=== PATIENT | male | born 1945 | race Caucasian/White ===

== ENCOUNTER 2016-11-03 06:45 | Inpatient (IN) | payer OTHER, MEDICARE ==
[~2016-11-03] VITALS: Ht 180.3 cm; Wt 104.2 kg
[~2016-11-03 06:45] MED LIST: ALBUTEROL SULF8.5 GM IH; ALBUTEROL17 GM IH; ALTACE10 MG PO; AMARYL2 MG PO; AMLODIPINE BESYL5 MG PO; ANDROGEL5 GM TP; BENEMID500 MG PO; BENICAR HCT 401 EAC1 PO; DIABETA5 MG PO; FLEXERIL10 MG PO; FLOMAX0.4 MG PO; GLUCOPHAGE1000 MG PO; GLUCOPHAGE500 MG PO; IBUPROFEN800 MG PO; JANUVIA100 MG PO; LASIX10 MG PO; LASIX40 MG PO; NORVASC2.5 MG PO; POTASSIUM CHLORIDE; PROBENECID500 MG PO; SPIRIVA1 INHALATI IH; VERAPAMIL
[2016-11-03 07:29] LABS: HEMATOCRIT 37.7 % (38.0-50.0); MCH 27.3 PG (29.0-34.0); MCHC 32.6 G/DL (30.0-36.0); MCV 83.8 FL (86-99); MEAN PLAT.VOLUME 10.7 uM^3 (9.0-12.4); PLATELET COUNT 148 K/uL (156-360); RBC DIS.WIDTH-CV 15.8 % (11.8-14.6); RBC DIS.WIDTH-SD 48.2 % (39-53)
[2016-11-03 07:30] LABS: BASOPHIL COUNT 0.1 K/uL (0-0.1); EOSINOPHIL (%) 0 % (0-5); IMMATURE GRANULOCYTE (%) 0.3 % (0.0-0.7); IMMATURE GRANULOCYTE COUNT 0.3 K/uL; LYMPHOCYTE COUNT 0.6 K/uL (1.0-2.8); MONOCYTE (%) 8.8 % (3-12); MONOCYTE COUNT 0.9 K/uL (0-0.8); NEUTROPHIL (%) 83.9 % (45-76); NEUTROPHIL COUNT 8.2 K/uL (1.8-6.4); WHITE BLOOD COUNT 9.8 K/uL (4.1-10.2)
[2016-11-03 07:39] LABS: INTER. NORMALIZED RATIO 1.1; PROTHROMBIN TIME 10.7 (9.2-11.2); PTT 33.5 (25-32)
[2016-11-03 08:00] LABS: ANION GAP 15 MEQ/L (2-14); CHLORIDE 101 MEQ/L (99-109); POTASSIUM 3.6 MEQ/L (3.7-5.4); SAMPLE HEMOLYSIS CHECK 0; SAMPLE ICTERIC CHECK 0; SAMPLE LIPEMIA CHECK 0; SODIUM 138 MEQ/L (136-147)
[2016-11-03 08:06] LABS: GFR ESTIMATE (CALCULATED) 27 mL/min/; GLUCOSE 166 mg/dL (70-99); UREA NITROGEN (BUN) 54 mg/dL (9-23)
[2016-11-03 08:11] LABS: TROP-I INTERPRETATION NEGATIVE; TROPONIN-I 0.24 ng/mL (0.0-0.30)
[2016-11-03 12:03] LABS: BICARBONATE 22.2 mEq/L (22-26); CARBOXY HGB 0.3 % (0-5); METHEMOGLOBIN 0.6 % (0-1.5); PCO2 35 mm Hg (35-45); PO2 99 mm Hg (80-100); pH 7.41 (7.35-7.45)
[2016-11-03] MEDS ORDERED: NORVASC5 MG PO (12:03)
[2016-11-03 12:04] LABS: COMMENTS - BLOOD GASES +C; DEVICE HFNC; O2 FLOW 8 L/MIN; SITE RR +A; TOTAL RESP RATE 20 resp/min
[2016-11-03] MEDS ORDERED: GLUCOPHAGE500 MG PO (12:04)
[2016-11-03] MEDS ORDERED: BENICAR HCT 401 EAC1 PO (12:06)
[2016-11-03] MEDS ORDERED: GLYBURIDE5 MG PO (12:07)
[2016-11-03] MEDS ORDERED: ASTEPRO 0.15%30 ML BOTH NARES (12:10)
[2016-11-03] MEDS ORDERED: SPIRIVA1 INHALATI IH (12:12)
[2016-11-03] MEDS ORDERED: FLEXERIL10 MG PO (12:17)
[2016-11-03] MEDS ORDERED: NYSTATIN-TRIAMC15 GM TP (12:19)
[2016-11-03] MEDS ORDERED: SANTYL30 GM TP (12:19)
[2016-11-03] MEDS ORDERED: POTASSIUM CHLO10 MEQ PO (12:20)
[2016-11-03] MEDS ORDERED: ULTRAM50 MG PO (12:22)
[2016-11-03] MEDS ORDERED: TYLENOL REGULA325 MG PO (12:23)
[2016-11-03] MEDS ORDERED: METOLAZONE2.5 MG PO (12:24)
[2016-11-03 12:36] LABS: PTT 31.5 (25-32)
[2016-11-03 13:48] LABS: INFLUENZA A VIRAL ANTIGEN NEGATIVE; INFLUENZA B VIRAL ANTIGEN POSITIVE
[2016-11-03 15:15] VITALS: BP 130/56
[2016-11-03 16:00] VITALS: BP 129/113
[2016-11-03 16:48] LABS: METH RESISTANT S AUREUS PCR POSITIVE (NEGATIVE)
[2016-11-03 16:51] LABS: PROBE CHECK PASS
[2016-11-03 18:00] VITALS: BP 124/55
[2016-11-03 19:40] VITALS: BP 163/76
[2016-11-03 20:45] VITALS: BP 150/66
[2016-11-03 22:00] VITALS: BP 140/60
[2016-11-03 23:38] LABS: POINT-OF-CARE METER ID UU14174217
[2016-11-04] VITALS (9 sets, daily range): BP systolic 128–163; BP diastolic 57–87
[2016-11-04 06:50] LABS: ANION GAP 18 MEQ/L (2-14); CHLORIDE 100 MEQ/L (99-109); GFR ESTIMATE (CALCULATED) 26 mL/min/; HDL CHOLESTEROL 41 MG/DL (Desirable>=40); LDL CHOLESTEROL 87 mg/dL (Desirable<100); NON-HDL CHOLESTEROL 115 mg/dL (Desirable<160); POTASSIUM 3.7 MEQ/L (3.7-5.4); SAMPLE HEMOLYSIS CHECK 0; SAMPLE ICTERIC CHECK 0; SAMPLE LIPEMIA CHECK 0; SODIUM 137 MEQ/L (136-147); TOTAL CHOLESTEROL 156 mg/dL (Desirable<200); TRIGLYCERIDES 140 MG/DL (Normal: <150); UREA NITROGEN (BUN) 62 mg/dL (9-23)
[2016-11-04 07:06] LABS: GLUCOSE 285 mg/dL (70-99)
[2016-11-04 10:23] LABS: TROP-I INTERPRETATION NEGATIVE; TROPONIN-I 0.05 ng/mL (0.0-0.30)
[2016-11-04 12:58] LABS: POINT-OF-CARE METER ID UU13113803
[2016-11-04 16:24] LABS: TROP-I INTERPRETATION NEGATIVE; TROPONIN-I 0.14 ng/mL (0.0-0.30)
[2016-11-04 17:31] LABS: POINT-OF-CARE METER ID UU13113803
[2016-11-04 22:13] LABS: TROP-I INTERPRETATION NEGATIVE; TROPONIN-I 0.11 ng/mL (0.0-0.30)
[2016-11-05] VITALS (8 sets, daily range): BP systolic 147–178; BP diastolic 61–86
[2016-11-05 07:33] LABS: MCH 27.5 PG (29.0-34.0); MCHC 32.9 G/DL (30.0-36.0); MCV 83.5 FL (86-99); RBC DIS.WIDTH-CV 15.7 % (11.8-14.6); RBC DIS.WIDTH-SD 47.9 % (39-53); RED BLOOD COUNT 4.07 M/uL (4.00-5.50); WHITE BLOOD COUNT 7.5 K/uL (4.1-10.2)
[2016-11-05 07:50] LABS: MEAN PLAT.VOLUME 10.6 uM^3 (9.0-12.4)
[2016-11-05 07:55] LABS: PLATELET COUNT 199 K/uL (156-360)
[2016-11-05 08:08] LABS: ALKALINE PHOSPHATASE 41 IU/L (3-129); ANION GAP 14 MEQ/L (2-14); CHLORIDE 101 MEQ/L (99-109); GFR ESTIMATE (CALCULATED) 27 mL/min/; GLUCOSE 245 mg/dL (70-99); MAGNESIUM 2.1 mg/dl (1.3-2.7); POTASSIUM 3.7 MEQ/L (3.7-5.4); SAMPLE HEMOLYSIS CHECK 0; SAMPLE ICTERIC CHECK 0; SAMPLE LIPEMIA CHECK 0; SODIUM 136 MEQ/L (136-147); TOTAL BILIRUBIN 0.2 MG/DL (0.0-1.0); UREA NITROGEN (BUN) 66 mg/dL (9-23)
[2016-11-05 10:57] LABS: EOSINOPHIL (%) 0.1 % (0-5); HEMATOLOGY COMMENT 1 REV; IMMATURE GRANULOCYTE (%) 0.3 % (0.0-0.7); LYMPHOCYTE COUNT 0.6 K/uL (1.0-2.8); MONOCYTE (%) 4.7 % (3-12); MONOCYTE COUNT 0.4 K/uL (0-0.8); NEUTROPHIL COUNT 6.5 K/uL (1.8-6.4); USER ID NJR
[2016-11-05 11:11] LABS: POINT-OF-CARE USER ID ENVKC36
[2016-11-06 03:15] VITALS: BP 138/67
[2016-11-06 07:10] LABS: EOSINOPHIL (%) 0 % (0-5); HEMATOCRIT 33.5 % (38.0-50.0); IMMATURE GRANULOCYTE (%) 0.7 % (0.0-0.7); IMMATURE GRANULOCYTE COUNT 0.1 K/uL; LYMPHOCYTE COUNT 0.4 K/uL (1.0-2.8); MCH 27.6 PG (29.0-34.0); MCHC 33.1 G/DL (30.0-36.0); MCV 83.3 FL (86-99); MEAN PLAT.VOLUME 10.5 uM^3 (9.0-12.4); MONOCYTE (%) 5.9 % (3-12); MONOCYTE COUNT 0.6 K/uL (0-0.8); NEUTROPHIL (%) 89.6 % (45-76); NEUTROPHIL COUNT 8.6 K/uL (1.8-6.4); PLATELET COUNT 233 K/uL (156-360); RBC DIS.WIDTH-CV 15.5 % (11.8-14.6); RBC DIS.WIDTH-SD 47.3 % (39-53); RED BLOOD COUNT 4.02 M/uL (4.00-5.50); WHITE BLOOD COUNT 9.6 K/uL (4.1-10.2)
[2016-11-06 07:46] LABS: POINT-OF-CARE METER ID UU14174216
[2016-11-06 07:49] LABS: ANION GAP 13 MEQ/L (2-14); CHLORIDE 100 MEQ/L (99-109); GFR ESTIMATE (CALCULATED) 35 mL/min/; GLUCOSE 285 mg/dL (70-99); POTASSIUM 3.9 MEQ/L (3.7-5.4); SAMPLE HEMOLYSIS CHECK 0; SAMPLE ICTERIC CHECK 0; SAMPLE LIPEMIA CHECK 0; SODIUM 133 MEQ/L (136-147); UREA NITROGEN (BUN) 64 mg/dL (9-23)
[2016-11-06 12:00] VITALS: BP 148/78; BP 167/86
[2016-11-06 16:00] VITALS: BP 152/70
[2016-11-06 19:15] VITALS: BP 152/72
[2016-11-06 21:01] LABS: POINT-OF-CARE METER ID UU14174216
[2016-11-07 00:20] VITALS: BP 156/80
[2016-11-07 04:00] VITALS: BP 151/67
[2016-11-07 06:50] LABS: HEMATOCRIT 34.3 % (38.0-50.0); MCH 27.6 PG (29.0-34.0); MCHC 32.9 G/DL (30.0-36.0); MCV 83.7 FL (86-99); MEAN PLAT.VOLUME 10.3 uM^3 (9.0-12.4); PLATELET COUNT 239 K/uL (156-360); RBC DIS.WIDTH-CV 15.5 % (11.8-14.6); RBC DIS.WIDTH-SD 47.3 % (39-53); WHITE BLOOD COUNT 8.3 K/uL (4.1-10.2)
[2016-11-07 07:09] LABS: ANION GAP 10 MEQ/L (2-14); CHLORIDE 103 MEQ/L (99-109); GFR ESTIMATE (CALCULATED) 37 mL/min/; GLUCOSE 264 mg/dL (70-99); POTASSIUM 4.2 MEQ/L (3.7-5.4); SAMPLE HEMOLYSIS CHECK 0; SAMPLE ICTERIC CHECK 0; SAMPLE LIPEMIA CHECK 0; SODIUM 135 MEQ/L (136-147); UREA NITROGEN (BUN) 56 mg/dL (9-23)
[2016-11-07 08:07] VITALS: BP 136/87; BP 159/76
[2016-11-07 12:30] VITALS: BP 158/74
[2016-11-07 16:23] LABS: POINT-OF-CARE METER ID UU13113781
[2016-11-07 17:25] VITALS: BP 159/75
[2016-11-07 19:20] VITALS: BP 172/79
[2016-11-07 22:09] LABS: POINT-OF-CARE METER ID UU14174216
[2016-11-08] VITALS (7 sets, daily range): BP systolic 150–186; BP diastolic 73–92
[2016-11-08 06:56] LABS: EOSINOPHIL (%) 0 % (0-5); HEMATOCRIT 38.5 % (38.0-50.0); IMMATURE GRANULOCYTE (%) 1.8 % (0.0-0.7); IMMATURE GRANULOCYTE COUNT 0.2 K/uL; LYMPHOCYTE COUNT 0.9 K/uL (1.0-2.8); MCH 26.2 PG (29.0-34.0); MCHC 31.4 G/DL (30.0-36.0); MCV 83.3 FL (86-99); MEAN PLAT.VOLUME 9.9 uM^3 (9.0-12.4); MONOCYTE (%) 5.4 % (3-12); MONOCYTE COUNT 0.4 K/uL (0-0.8); NEUTROPHIL (%) 81.7 % (45-76); NEUTROPHIL COUNT 6.7 K/uL (1.8-6.4); PLATELET COUNT 268 K/uL (156-360); RBC DIS.WIDTH-CV 15.3 % (11.8-14.6); RBC DIS.WIDTH-SD 46.5 % (39-53); RED BLOOD COUNT 4.62 M/uL (4.00-5.50); WHITE BLOOD COUNT 8.2 K/uL (4.1-10.2)
[2016-11-08 07:20] LABS: ANION GAP 8 MEQ/L (2-14); CHLORIDE 105 MEQ/L (99-109); GFR ESTIMATE (CALCULATED) 45 mL/min/; GLUCOSE 208 mg/dL (70-99); POTASSIUM 4.3 MEQ/L (3.7-5.4); SAMPLE HEMOLYSIS CHECK 0; SAMPLE ICTERIC CHECK 0; SAMPLE LIPEMIA CHECK 0; SODIUM 139 MEQ/L (136-147); UREA NITROGEN (BUN) 49 mg/dL (9-23)
[2016-11-08 20:56] LABS: POINT-OF-CARE METER ID UU13113698
[2016-11-09] VITALS (7 sets, daily range): BP systolic 148–187; BP diastolic 59–90
[2016-11-09 07:08] LABS: EOSINOPHIL (%) 0 % (0-5); HEMATOCRIT 37.2 % (38.0-50.0); IMMATURE GRANULOCYTE COUNT 0.2 K/uL; LYMPHOCYTE COUNT 0.6 K/uL (1.0-2.8); MCH 28.1 PG (29.0-34.0); MCHC 33.3 G/DL (30.0-36.0); MCV 84.2 FL (86-99); MEAN PLAT.VOLUME 10.2 uM^3 (9.0-12.4); MONOCYTE (%) 9.2 % (3-12); MONOCYTE COUNT 0.9 K/uL (0-0.8); NEUTROPHIL (%) 83.1 % (45-76); NEUTROPHIL COUNT 8.2 K/uL (1.8-6.4); PLATELET COUNT 259 K/uL (156-360); RBC DIS.WIDTH-CV 15.4 % (11.8-14.6); RBC DIS.WIDTH-SD 47.5 % (39-53); RED BLOOD COUNT 4.42 M/uL (4.00-5.50); WHITE BLOOD COUNT 9.8 K/uL (4.1-10.2)
[2016-11-09 07:31] LABS: ANION GAP 7 MEQ/L (2-14); CHLORIDE 106 MEQ/L (99-109); GFR ESTIMATE (CALCULATED) 45 mL/min/; GLUCOSE 152 mg/dL (70-99); POTASSIUM 4.3 MEQ/L (3.7-5.4); SAMPLE HEMOLYSIS CHECK 0; SAMPLE ICTERIC CHECK 0; SAMPLE LIPEMIA CHECK 0; SODIUM 140 MEQ/L (136-147); UREA NITROGEN (BUN) 47 mg/dL (9-23)
[2016-11-09 07:32] LABS: MAGNESIUM 1.7 mg/dl (1.3-2.7)
[2016-11-09 07:35] LABS: POINT-OF-CARE METER ID UU13113698
[2016-11-09 11:04] LABS: POINT-OF-CARE METER ID UU14174216
[2016-11-09 16:16] LABS: POINT-OF-CARE METER ID UU14174216
[2016-11-10 04:38] VITALS: BP 169/76
[2016-11-10 07:02] LABS: EOSINOPHIL (%) 0 % (0-5); HEMATOCRIT 39.3 % (38.0-50.0); IMMATURE GRANULOCYTE (%) 1.8 % (0.0-0.7); IMMATURE GRANULOCYTE COUNT 0.2 K/uL; MCH 26.3 PG (29.0-34.0); MCV 84.9 FL (86-99); MEAN PLAT.VOLUME 10.2 uM^3 (9.0-12.4); MONOCYTE (%) 5.8 % (3-12); MONOCYTE COUNT 0.7 K/uL (0-0.8); NEUTROPHIL COUNT 9.6 K/uL (1.8-6.4); PLATELET COUNT 279 K/uL (156-360); RBC DIS.WIDTH-CV 15.7 % (11.8-14.6); RBC DIS.WIDTH-SD 47.9 % (39-53); RED BLOOD COUNT 4.63 M/uL (4.00-5.50); WHITE BLOOD COUNT 11.4 K/uL (4.1-10.2)
[2016-11-10 07:26] LABS: ANION GAP 10 MEQ/L (2-14); CHLORIDE 107 MEQ/L (99-109); GFR ESTIMATE (CALCULATED) 45 mL/min/; GLUCOSE 122 mg/dL (70-99); MAGNESIUM 1.6 mg/dl (1.3-2.7); POTASSIUM 4.2 MEQ/L (3.7-5.4); SAMPLE HEMOLYSIS CHECK 0; SAMPLE ICTERIC CHECK 0; SAMPLE LIPEMIA CHECK 0; SODIUM 143 MEQ/L (136-147); UREA NITROGEN (BUN) 44 mg/dL (9-23)
[2016-11-10 07:29] LABS: VANCOMYCIN, TROUGH 16.2 MCG/ML (10-20)
[2016-11-10 08:00] LABS: POINT-OF-CARE USER ID NUTSLF44
[2016-11-10 08:10] VITALS: BP 172/83
[2016-11-10 11:32] LABS: POINT-OF-CARE USER ID NUTSLF44
[2016-11-10 12:38] VITALS: BP 185/88
[2016-11-10 16:09] LABS: POINT-OF-CARE METER ID UU13113698
[2016-11-10 16:28] VITALS: BP 158/76
[2016-11-10 20:24] VITALS: BP 178/84
[2016-11-10 23:07] VITALS: BP 138/90
[2016-11-11] VITALS (7 sets, daily range): BP systolic 130–213; BP diastolic 67–97
[2016-11-11 07:02] LABS: ANION GAP 10 MEQ/L (2-14); CHLORIDE 106 MEQ/L (99-109); GFR ESTIMATE (CALCULATED) 45 mL/min/; GLUCOSE 140 mg/dL (70-99); POTASSIUM 3.7 MEQ/L (3.7-5.4); SAMPLE HEMOLYSIS CHECK 0; SAMPLE ICTERIC CHECK 0; SAMPLE LIPEMIA CHECK 0; SODIUM 141 MEQ/L (136-147); UREA NITROGEN (BUN) 46 mg/dL (9-23)
[2016-11-11 23:34] LABS: POINT-OF-CARE METER ID UU13113781
[2016-11-12 03:54] VITALS: BP 146/74
[2016-11-12 06:48] LABS: HEMATOCRIT 37.4 % (38.0-50.0); MCHC 31.3 G/DL (30.0-36.0); MCV 86.2 FL (86-99); MEAN PLAT.VOLUME 10.4 uM^3 (9.0-12.4); PLATELET COUNT 267 K/uL (156-360); RBC DIS.WIDTH-CV 15.5 % (11.8-14.6); RED BLOOD COUNT 4.34 M/uL (4.00-5.50); WHITE BLOOD COUNT 13.9 K/uL (4.1-10.2)
[2016-11-12 07:12] LABS: ANION GAP 9 MEQ/L (2-14); CHLORIDE 106 MEQ/L (99-109); GFR ESTIMATE (CALCULATED) 45 mL/min/; GLUCOSE 168 mg/dL (70-99); POTASSIUM 4.1 MEQ/L (3.7-5.4); SAMPLE HEMOLYSIS CHECK 0; SAMPLE ICTERIC CHECK 0; SAMPLE LIPEMIA CHECK 0; SODIUM 141 MEQ/L (136-147); UREA NITROGEN (BUN) 43 mg/dL (9-23)
[2016-11-12 08:58] VITALS: BP 215/88
[2016-11-12 10:22] VITALS: BP 135/59
[2016-11-12] MEDS ORDERED: LEVOFLOXACIN500 MG PO (10:40)
[2016-11-12] MEDS ORDERED: DILTIAZEM 24HR180 MG PO (10:40)
[2016-11-12] MEDS ORDERED: CARVEDILOL25 MG PO (10:40)
[2016-11-12] MEDS ORDERED: LINEZOLID600 MG PO (10:40)
[2016-11-12] MEDS ORDERED: ADVAIR HFA120 INHALA IH (10:40)
[2016-11-12] MEDS ORDERED: CALCIUM ACETAT667 MG PO (10:40)
[2016-11-12 12:44] VITALS: BP 138/63
[2016-11-12 17:07] VITALS: BP 194/87
[2016-11-12 20:12] VITALS: BP 188/88
[2016-11-12 20:49] LABS: POINT-OF-CARE METER ID UU13113781
[2016-11-13 00:30] VITALS: BP 169/79
[2016-11-13 04:04] VITALS: BP 163/73
[2016-11-13 07:12] VITALS: BP 182/94
[2016-11-13 07:51] LABS: POINT-OF-CARE USER ID ENVKC36
[2016-11-13] MEDS ORDERED: APRESOLINE25 MG PO (08:13)
[2016-11-13 11:45] VITALS: BP 155/70; BP 157/73
[2016-11-13 11:59] LABS: POINT-OF-CARE METER ID UU13113781; POINT-OF-CARE USER ID ENVKC36
[2016-11-13] MEDS ORDERED: PREDNISONE10 MG PO (14:20)
== END 2016-11-13 15:06 | disposition home health service (06) | DRG 189 ==
LOC: EME → EDBD 06:45 → EDOF 10:52 → 4EAST 10:52 → 4WEST 10:52 → EDOF 11:54 → 4WEST 14:58 → 4EAST 11-04 20:09
PROVIDERS: Emergency Medicine; Family Medicine; Hospitalist; Internal Medicine; Internal Medicine Nephrology; Nurse Practitioner Family; Physician Assistant
DX: J96.01 Acute respiratory failure with hypoxia (principal); J10.08 Influenza due to other identified influenza virus with other specified pneumonia; J15.212 Pneumonia due to Methicillin resistant Staphylococcus aureus; J15.1 Pneumonia due to Pseudomonas; J45.901 Unspecified asthma with (acute) exacerbation; N17.9 Acute kidney failure, unspecified; N04.9 Nephrotic syndrome with unspecified morphologic changes; G82.20 Paraplegia, unspecified; J20.9 Acute bronchitis, unspecified; T50.1X5A Adverse effect of loop [high-ceiling] diuretics, initial encounter; T39.395A Adverse effect of other nonsteroidal anti-inflammatory drugs [NSAID], initial encounter; I10 Essential (primary) hypertension; N18.3 Chronic kidney disease, stage 3 (moderate); I48.91 Unspecified atrial fibrillation; J10.1 Influenza due to other identified influenza virus with other respiratory manifestations; E11.65 Type 2 diabetes mellitus with hyperglycemia; E11.22 Type 2 diabetes mellitus with diabetic chronic kidney disease; I50.9 Heart failure, unspecified; M48.00 Spinal stenosis, site unspecified; G89.4 Chronic pain syndrome; I87.2 Venous insufficiency (chronic) (peripheral); I87.8 Other specified disorders of veins; L22 Diaper dermatitis; R32 Unspecified urinary incontinence; E83.51 Hypocalcemia; E83.39 Other disorders of phosphorus metabolism; E66.01 Morbid (severe) obesity due to excess calories; Z88.1 Allergy status to other antibiotic agents; Z87.891 Personal history of nicotine dependence; Z99.3 Dependence on wheelchair; Z22.322 Carrier or suspected carrier of Methicillin resistant Staphylococcus aureus; Z86.14 Personal history of Methicillin resistant Staphylococcus aureus infection; Z68.36 Body mass index [BMI] 36.0-36.9, adult
CPT/HCPCS: 36600; 71010; 76770; 80048; 80053; 80061; 80069; 80202; 81003; 82565; 82803; 82948; 83735; 83880; 84100; 84484; 84520; 85025; 85027; 85379; 85610; 85730; 87070; 87077; 87147; 87186; 87205; 87502; 87641; 89190; 93005; 93306; 93970; 94010; 94640; 94640 76; 94667; 94668; 94760; 94799; 97530 GO; 97530 GP; 99202; 99281; 99285; J0360; J0696; J1644; J1815; J2270; J2543; J2930; J3370; J3480; J7030; J7050; J7512

== ENCOUNTER 2016-11-30 08:25 | Inpatient (IN) | payer OTHER, MEDICARE ==
[~2016-11-30] VITALS: Ht 180.3 cm; Wt 126.5 kg
[~2016-11-30 08:25] MED LIST changes: +ADVAIR HFA120 INHALA IH; +APRESOLINE25 MG PO; +ASTEPRO 0.15%30 ML BOTH NARES; +CALCIUM ACETAT667 MG PO; +CARVEDILOL25 MG PO; +DILTIAZEM 24HR180 MG PO; +GLYBURIDE5 MG PO; +LEVOFLOXACIN500 MG PO; +LINEZOLID600 MG PO; +METOLAZONE2.5 MG PO; +NORVASC5 MG PO; +NYSTATIN-TRIAMC15 GM TP; +POTASSIUM CHLO10 MEQ PO; +PREDNISONE10 MG PO; +SANTYL30 GM TP; +TYLENOL REGULA325 MG PO; +ULTRAM50 MG PO
[2016-11-30 09:04] LABS: BASE EXCESS 6.7 mEq/L (-3 to +3); BICARBONATE 31.3 mEq/L (22-26); CARBOXY HGB 1.4 % (0-5); COMMENTS - BLOOD GASES A+C+; DEVICE NRBM; METHEMOGLOBIN 1.1 % (0-1.5); O2 FLOW 15 L/MIN; PCO2 44 mm Hg (35-45); PO2 95 mm Hg (80-100); SITE LR; pH 7.46 (7.35-7.45)
[2016-11-30 09:05] LABS: TOTAL RESP RATE 23 resp/min
[2016-11-30 09:14] LABS: INTER. NORMALIZED RATIO 1.1; PROTHROMBIN TIME 10.7 (9.2-11.2)
[2016-11-30 09:20] LABS: HEMATOCRIT 36.5 % (38.0-50.0); MCH 27.4 PG (29.0-34.0); MCHC 31.2 G/DL (30.0-36.0); MCV 87.7 FL (86-99); MEAN PLAT.VOLUME 9.8 uM^3 (9.0-12.4); PLATELET COUNT 286 K/uL (156-360); RBC DIS.WIDTH-CV 15.4 % (11.8-14.6); RBC DIS.WIDTH-SD 48.8 % (39-53); RED BLOOD COUNT 4.16 M/uL (4.00-5.50)
[2016-11-30 09:38] LABS: ANION GAP 11 MEQ/L (2-14); CHLORIDE 98 MEQ/L (99-109); POTASSIUM 3.7 MEQ/L (3.7-5.4); SAMPLE HEMOLYSIS CHECK 0; SAMPLE ICTERIC CHECK 0; SAMPLE LIPEMIA CHECK 0; SODIUM 139 MEQ/L (136-147)
[2016-11-30 09:43] LABS: GFR ESTIMATE (CALCULATED) 30 mL/min/; GLUCOSE 185 mg/dL (70-99); UREA NITROGEN (BUN) 50 mg/dL (9-23)
[2016-11-30 09:46] LABS: TROP-I INTERPRETATION NEGATIVE; TROPONIN-I 0.04 ng/mL (0.0-0.30)
[2016-11-30 09:59] LABS: WHITE BLOOD COUNT 8.5 K/uL (4.1-10.2)
[2016-11-30 11:17] LABS: EOSINOPHIL COUNT 0.5 K/uL (0-0.3); IMMATURE GRANULOCYTE (%) 0.4 % (0.0-0.7); INSTRUMENT ABS NEUTROPHIL CT 5.9 K/uL; NEUTROPHIL (%) 69.7 % (45-76); NEUTROPHIL COUNT 5.9 K/uL (1.8-6.4)
[2016-11-30] MEDS ORDERED: ADVAIR HFA120 INHALA IH (12:08)
[2016-11-30] MEDS ORDERED: VASHE WOUND TH475 ML IR (12:16)
[2016-11-30] MEDS ORDERED: CALMOSEPTINE O120 GM TP (12:19)
[2016-11-30 13:35] LABS: POINT-OF-CARE METER ID UU14100415
[2016-11-30 15:26] VITALS: BP 148/71
[2016-11-30 15:55] VITALS: BP 148/71
[2016-11-30 16:37] LABS: INFLUENZA A VIRAL ANTIGEN NEGATIVE; INFLUENZA B VIRAL ANTIGEN POSITIVE
[2016-11-30 17:29] LABS: METH RESISTANT S AUREUS PCR POSITIVE (NEGATIVE)
[2016-11-30 17:36] LABS: PROBE CHECK PASS
[2016-11-30 20:04] VITALS: BP 112/57
[2016-12-01] VITALS (8 sets, daily range): BP systolic 104–143; BP diastolic 56–68
[2016-12-01 06:31] LABS: HEMATOCRIT 32.5 % (38.0-50.0); MCH 27.7 PG (29.0-34.0); MCHC 32.3 G/DL (30.0-36.0); MCV 85.8 FL (86-99); MEAN PLAT.VOLUME 10.4 uM^3 (9.0-12.4); PLATELET COUNT 324 K/uL (156-360); RBC DIS.WIDTH-CV 14.9 % (11.8-14.6); RBC DIS.WIDTH-SD 46.8 % (39-53); RED BLOOD COUNT 3.79 M/uL (4.00-5.50); WHITE BLOOD COUNT 6.7 K/uL (4.1-10.2)
[2016-12-01 07:00] LABS: ANION GAP 12 MEQ/L (2-14); CHLORIDE 100 MEQ/L (99-109); GFR ESTIMATE (CALCULATED) 33 mL/min/; GLUCOSE 274 mg/dL (70-99); SAMPLE HEMOLYSIS CHECK 1; SAMPLE ICTERIC CHECK 0; SAMPLE LIPEMIA CHECK 0; SODIUM 139 MEQ/L (136-147); UREA NITROGEN (BUN) 51 mg/dL (9-23)
[2016-12-01 07:05] LABS: POTASSIUM 3.8 MEQ/L (3.7-5.4)
[2016-12-01 08:00] LABS: POINT-OF-CARE METER ID UU14174216
[2016-12-01 08:15] LABS: EOSINOPHIL (%) 0.1 % (0-5); IMMATURE GRANULOCYTE (%) 0.7 % (0.0-0.7); IMMATURE GRANULOCYTE COUNT 0.1 K/uL; INSTRUMENT ABS NEUTROPHIL CT 5.7 K/uL; LYMPHOCYTE COUNT 0.5 K/uL (1.0-2.8); MONOCYTE (%) 6.1 % (3-12); MONOCYTE COUNT 0.4 K/uL (0-0.8); NEUTROPHIL (%) 85.3 % (45-76); NEUTROPHIL COUNT 5.7 K/uL (1.8-6.4)
[2016-12-01 11:04] LABS: ADD MIUA? YES; BILIRUBIN NEGATIVE; BLOOD SMALL; COLOR YELLOW ((YELLOW)); GLUCOSE (STRIP) 150; KETONES NEGATIVE; LEUKOCYTES MODERATE; NITRITE NEGATIVE; PROTEIN (STRIP) 100; SPECIFIC GRAVITY 1.014 (1.000-1.030); UROBILINOGEN 0.2 MG/DL (0.2-1.0)
[2016-12-01 12:27] LABS: WHITE BLOOD CELLS TNTC /HPF (0-5)
[2016-12-01 14:26] LABS: Estimated Average Glucose 174 mg/dL (70-123); HEMOGLOBIN A1c (GLYCOHEMOGLOB) 7.7 % HGB (Below 5.7)
[2016-12-01 16:24] LABS: POINT-OF-CARE METER ID UU13113698
[2016-12-01 21:12] LABS: POINT-OF-CARE METER ID UU13113698
[2016-12-01 21:16] LABS: ANION GAP 12 MEQ/L (2-14); CHLORIDE 98 MEQ/L (99-109); GFR ESTIMATE (CALCULATED) 33 mL/min/; GLUCOSE 256 mg/dL (70-99); MAGNESIUM 1.7 mg/dl (1.3-2.7); SAMPLE HEMOLYSIS CHECK 0; SAMPLE ICTERIC CHECK 0; SAMPLE LIPEMIA CHECK 0; SODIUM 137 MEQ/L (136-147); UREA NITROGEN (BUN) 56 mg/dL (9-23)
[2016-12-02 04:48] VITALS: BP 127/66
[2016-12-02 06:45] LABS: HEMATOCRIT 30.9 % (38.0-50.0); MCH 26.7 PG (29.0-34.0); MCHC 31.1 G/DL (30.0-36.0); MCV 85.8 FL (86-99); RBC DIS.WIDTH-CV 14.9 % (11.8-14.6); RBC DIS.WIDTH-SD 47.3 % (39-53); WHITE BLOOD COUNT 6.6 K/uL (4.1-10.2)
[2016-12-02 07:08] LABS: ANION GAP 10 MEQ/L (2-14); CHLORIDE 102 MEQ/L (99-109); GFR ESTIMATE (CALCULATED) 31 mL/min/; GLUCOSE 315 mg/dL (70-99); POTASSIUM 3.5 MEQ/L (3.7-5.4); SAMPLE HEMOLYSIS CHECK 0; SAMPLE ICTERIC CHECK 0; SAMPLE LIPEMIA CHECK 0; SODIUM 139 MEQ/L (136-147); UREA NITROGEN (BUN) 55 mg/dL (9-23)
[2016-12-02 07:20] VITALS: BP 133/56
[2016-12-02 07:41] LABS: ABS NEUTROPHIL COUNT 5.9; BAND NEUTROPHILS 4.4 % (0-8.0); EOSINOPHIL ABS CT 0; HEMATOLOGY COMMENT 1 SN; INSTRUMENT ABS NEUTROPHIL CT 5.2 K/uL; LYMPHOCYTES 5.2 % (15.0-45.0); PLAT.SUFFICIENCY ADEQUATE; SEG.NEUTROPHILS 85.1 % (46.0-76.0)
[2016-12-02 07:41] LABS: POINT-OF-CARE METER ID UU13113698
[2016-12-02 08:04] LABS: INTERNAL CONTROL VALID? YES
[2016-12-02 11:18] VITALS: BP 127/59
[2016-12-02 11:29] LABS: MAGNESIUM 1.8 mg/dl (1.3-2.7)
[2016-12-02 11:30] LABS: POINT-OF-CARE METER ID UU13113698
[2016-12-02 15:23] VITALS: BP 144/68
[2016-12-02 20:00] VITALS: BP 173/77
[2016-12-02 21:21] LABS: POINT-OF-CARE METER ID UU13113698
[2016-12-02 23:55] VITALS: BP 170/82
[2016-12-03 04:01] VITALS: BP 159/75
[2016-12-03 07:47] LABS: POINT-OF-CARE METER ID UU13113698
[2016-12-03 08:17] VITALS: BP 161/72
[2016-12-03 12:15] VITALS: BP 160/77
[2016-12-03 12:31] LABS: POINT-OF-CARE METER ID UU13113698
[2016-12-03 16:00] VITALS: BP 139/67
[2016-12-03 17:05] LABS: VANCOMYCIN, TROUGH 20.5 MCG/ML (10-20)
[2016-12-03 17:36] LABS: POINT-OF-CARE METER ID UU13113698
[2016-12-03 17:47] LABS: POINT-OF-CARE METER ID UU13113698
[2016-12-03 20:00] VITALS: BP 149/72
[2016-12-03 22:16] LABS: POINT-OF-CARE METER ID UU13113698
[2016-12-04 00:01] VITALS: BP 158/90
[2016-12-04 04:00] VITALS: BP 147/72
[2016-12-04 07:04] LABS: HEMATOCRIT 32.8 % (38.0-50.0); MCH 26.9 PG (29.0-34.0); MCHC 31.7 G/DL (30.0-36.0); MEAN PLAT.VOLUME 9.9 uM^3 (9.0-12.4); PLATELET COUNT 322 K/uL (156-360); RBC DIS.WIDTH-CV 14.9 % (11.8-14.6); RBC DIS.WIDTH-SD 45.6 % (39-53); RED BLOOD COUNT 3.86 M/uL (4.00-5.50); WHITE BLOOD COUNT 7.4 K/uL (4.1-10.2)
[2016-12-04 07:12] LABS: ANION GAP 9 MEQ/L (2-14); CHLORIDE 103 MEQ/L (99-109); GFR ESTIMATE (CALCULATED) 35 mL/min/; GLUCOSE 296 mg/dL (70-99); POTASSIUM 3.8 MEQ/L (3.7-5.4); SAMPLE HEMOLYSIS CHECK 0; SAMPLE ICTERIC CHECK 0; SAMPLE LIPEMIA CHECK 0; SODIUM 136 MEQ/L (136-147); UREA NITROGEN (BUN) 60 mg/dL (9-23)
[2016-12-04 07:52] VITALS: BP 142/78
[2016-12-04 09:15] LABS: ABS NEUTROPHIL COUNT 5.9; BAND NEUTROPHILS 4.3 % (0-8.0); EOSINOPHIL ABS CT 0; INSTRUMENT ABS NEUTROPHIL CT 5.6 K/uL; LYMPHOCYTES 4.4 % (15.0-45.0); METAMYELOCYTES 4.3 %; PLAT.SUFFICIENCY ADEQUATE; SEG.NEUTROPHILS 75.7 % (46.0-76.0)
[2016-12-04 11:44] VITALS: BP 142/82
[2016-12-04 12:15] LABS: POINT-OF-CARE METER ID UU13113698
[2016-12-04 15:32] VITALS: BP 165/80
[2016-12-04 16:25] LABS: POINT-OF-CARE METER ID UU13113698
[2016-12-04 20:30] VITALS: BP 130/60
[2016-12-05] VITALS (7 sets, daily range): BP systolic 125–169; BP diastolic 60–77
[2016-12-05 07:14] LABS: HEMATOCRIT 32.1 % (38.0-50.0); MCH 27.2 PG (29.0-34.0); MCHC 32.1 G/DL (30.0-36.0); MCV 84.7 FL (86-99); MEAN PLAT.VOLUME 9.9 uM^3 (9.0-12.4); PLATELET COUNT 311 K/uL (156-360); RBC DIS.WIDTH-CV 15.3 % (11.8-14.6); RBC DIS.WIDTH-SD 46.2 % (39-53); RED BLOOD COUNT 3.79 M/uL (4.00-5.50); WHITE BLOOD COUNT 9.2 K/uL (4.1-10.2)
[2016-12-05 07:37] LABS: POINT-OF-CARE METER ID UU13113698
[2016-12-05 08:45] LABS: BASOPHILS 0.9 %; EOSINOPHIL ABS CT 0; INSTRUMENT ABS NEUTROPHIL CT 6.3 K/uL; LYMPHOCYTES 8.6 % (15.0-45.0); METAMYELOCYTES 1.7 %; NUCLEATED RBC'S 0.9; PLAT.SUFFICIENCY ADEQUATE; SEG.NEUTROPHILS 69.9 % (46.0-76.0); SPHEROCYTES 2+
[2016-12-05 09:09] LABS: CHLORIDE 103 mEq/L (99-109); POTASSIUM 3.7 mEq/L (3.7-5.4); SODIUM 135 mEq/L (136-147)
[2016-12-05 09:11] LABS: GLUCOSE 281 mg/dL (70-99)
[2016-12-05 09:13] LABS: ANION GAP 10 MEQ/L (2-14)
[2016-12-05 09:15] LABS: GFR ESTIMATE (CALCULATED) 35 mL/min/
[2016-12-05 09:16] LABS: UREA NITROGEN (BUN) 69 mg/dL (9-23)
[2016-12-05 12:08] LABS: POINT-OF-CARE METER ID UU13113698
[2016-12-05 16:14] LABS: POINT-OF-CARE METER ID UU13113698
[2016-12-06 04:55] VITALS: BP 135/60
[2016-12-06 07:11] LABS: HEMATOCRIT 33.5 % (38.0-50.0); MCH 26.8 PG (29.0-34.0); MCHC 31.6 G/DL (30.0-36.0); MCV 84.6 FL (86-99); NRBC (%) 0.2 /100 WBC (0-0); RBC DIS.WIDTH-CV 15.5 % (11.8-14.6); RBC DIS.WIDTH-SD 47.2 % (39-53); RED BLOOD COUNT 3.96 M/uL (4.00-5.50); WHITE BLOOD COUNT 11.9 K/uL (4.1-10.2)
[2016-12-06 07:30] LABS: ANION GAP 9 MEQ/L (2-14); CHLORIDE 102 MEQ/L (99-109); GFR ESTIMATE (CALCULATED) 35 mL/min/; GLUCOSE 198 mg/dL (70-99); SAMPLE HEMOLYSIS CHECK 0; SAMPLE ICTERIC CHECK 0; SAMPLE LIPEMIA CHECK 0; SODIUM 135 MEQ/L (136-147); UREA NITROGEN (BUN) 71 mg/dL (9-23)
[2016-12-06 09:19] VITALS: BP 123/80
[2016-12-06 10:07] LABS: POINT-OF-CARE METER ID UU13113698
[2016-12-06 10:49] LABS: ABS NEUTROPHIL COUNT 9.5; EOSINOPHIL ABS CT 0; INSTRUMENT ABS NEUTROPHIL CT 7.9 K/uL; PLATELET CLUMPS PRESENT - PLATELET COUNT APPEARS ADQ.; SPHEROCYTES 1+
[2016-12-06 12:00] VITALS: BP 130/78
[2016-12-06] MEDS ORDERED: FLUCONAZOLE100 MG PO (12:01)
[2016-12-06] MEDS ORDERED: PREDNISONE20 MG PO (12:01)
[2016-12-06] MEDS ORDERED: AMOX TR-K CLV1 EAC4 PO (12:01)
[2016-12-06] MEDS ORDERED: ALBUTEROL2.5 MG/3 M IH (12:01)
[2016-12-06 12:06] LABS: POINT-OF-CARE METER ID UU13113698; POINT-OF-CARE USER ID 606021404
[2016-12-06] MEDS ORDERED: BENICAR HCT 401 EAC1 PO (12:20)
[2016-12-06] MEDS ORDERED: GLYBURIDE5 MG PO (12:20)
[2016-12-06] MEDS ORDERED: DILTIAZEM 24HR180 MG PO (12:21)
[2016-12-06 12:52] LABS: POINT-OF-CARE METER ID UU13113698
[2016-12-06 13:09] LABS: POINT-OF-CARE METER ID UU13113698
[2016-12-06 15:30] VITALS: BP 138/70
== END 2016-12-06 15:30 | disposition home health service (06) | DRG 189 ==
LOC: EME → EDBD 08:25 → EME 08:25 → 4EAST 11:18 → EDOF 11:18 → 4SOUTH 11:18 → EDOF 11:41 → 4EAST 15:24 → 4SOUTH 12-03 02:02
PROVIDERS: Emergency Medicine; Hospitalist; Internal Medicine
DX: J96.01 Acute respiratory failure with hypoxia (principal); J18.9 Pneumonia, unspecified organism; J10.00 Influenza due to other identified influenza virus with unspecified type of pneumonia; N18.4 Chronic kidney disease, stage 4 (severe); N17.9 Acute kidney failure, unspecified; G82.20 Paraplegia, unspecified; J45.909 Unspecified asthma, uncomplicated; Z99.3 Dependence on wheelchair; I12.9 Hypertensive chronic kidney disease with stage 1 through stage 4 chronic kidney disease, or unspecified chronic kidney disease; R91.8 Other nonspecific abnormal finding of lung field; D64.9 Anemia, unspecified; E66.01 Morbid (severe) obesity due to excess calories; Z87.891 Personal history of nicotine dependence; J98.09 Other diseases of bronchus, not elsewhere classified; Z68.35 Body mass index [BMI] 35.0-35.9, adult; R32 Unspecified urinary incontinence; L30.4 Erythema intertrigo; S81.802A Unspecified open wound, left lower leg, initial encounter; I83.11 Varicose veins of right lower extremity with inflammation; I83.12 Varicose veins of left lower extremity with inflammation; I47.2 Ventricular tachycardia; I08.1 Rheumatic disorders of both mitral and tricuspid valves; E11.22 Type 2 diabetes mellitus with diabetic chronic kidney disease; B37.49 Other urogenital candidiasis
CPT/HCPCS: 36600; 71010; 71250; 80048; 80048 91; 80202; 81003; 82565; 82803; 82948; 83036; 83735; 83880; 84484; 85025; 85610; 85730; 87040; 87070; 87086; 87106; 87205; 87449; 87502; 87641; 93005; 93306; 94640; 94640 76; 94667; 94668; 94760; 94799; 97530 GP; 99202; 99281; 99285; J0456; J1644; J1815; J2543; J2920; J2930; J3370; J7030; J7050; J7512

== ENCOUNTER 2016-12-11 19:42 | Inpatient (IN) | payer OTHER, MEDICARE ==
[~2016-12-11] VITALS: Ht 180.3 cm; Wt 120.5 kg
[~2016-12-11 19:42] MED LIST changes: +ALBUTEROL2.5 MG/3 M IH; +AMOX TR-K CLV1 EAC4 PO; +CALMOSEPTINE O120 GM TP; +FLUCONAZOLE100 MG PO; +PREDNISONE20 MG PO; +VASHE WOUND TH475 ML IR
[2016-12-11 20:14] LABS: HEMATOCRIT 33.6 % (38.0-50.0); MCH 27.3 PG (29.0-34.0); MCHC 32.1 G/DL (30.0-36.0); MCV 84.8 FL (86-99); RBC DIS.WIDTH-CV 16.3 % (11.8-14.6); RBC DIS.WIDTH-SD 49.5 % (39-53); RED BLOOD COUNT 3.96 M/uL (4.00-5.50); WHITE BLOOD COUNT 22.6 K/uL (4.1-10.2)
[2016-12-11 20:19] LABS: CHLORIDE 101 mEq/L (99-109); POTASSIUM 4.5 mEq/L (3.7-5.4); SODIUM 133 mEq/L (136-147)
[2016-12-11 20:21] LABS: GLUCOSE 335 mg/dL (70-99)
[2016-12-11 20:22] LABS: ANION GAP 9 MEQ/L (2-14)
[2016-12-11 20:25] LABS: GFR ESTIMATE (CALCULATED) 49 mL/min/; UREA NITROGEN (BUN) 65 mg/dL (9-23)
[2016-12-11 20:33] LABS: TROP-I INTERPRETATION NEGATIVE; TROPONIN-I 0.04 ng/mL (0.0-0.30)
[2016-12-11 20:55] LABS: MEAN PLAT.VOLUME 10.3 uM^3 (9.0-12.4); PLATELET COUNT 218 K/uL (156-360)
[2016-12-11] MEDS ORDERED: POTASSIUM CHLO10 ME4 PO (22:13)
[2016-12-11] MEDS ORDERED: NYATA15 GM TP (22:13)
[2016-12-11] MEDS ORDERED: AMOX TR-K CLV1 EAC4 PO (22:15)
[2016-12-12 01:08] VITALS: BP 158/80
[2016-12-12 07:00] LABS: MCH 27.4 PG (29.0-34.0); MCHC 31.7 G/DL (30.0-36.0); MCV 86.5 FL (86-99); PLATELET COUNT 167 K/uL (156-360); RBC DIS.WIDTH-CV 16.5 % (11.8-14.6); RED BLOOD COUNT 3.47 M/uL (4.00-5.50); WHITE BLOOD COUNT 27.5 K/uL (4.1-10.2)
[2016-12-12 07:31] LABS: ANION GAP 8 MEQ/L (2-14); CHLORIDE 105 MEQ/L (99-109); GFR ESTIMATE (CALCULATED) 53 mL/min/; GLUCOSE 291 mg/dL (70-99); POTASSIUM 4.3 MEQ/L (3.7-5.4); SAMPLE HEMOLYSIS CHECK 0; SAMPLE ICTERIC CHECK 0; SAMPLE LIPEMIA CHECK 0; SODIUM 136 MEQ/L (136-147); UREA NITROGEN (BUN) 66 mg/dL (9-23)
[2016-12-12 10:06] VITALS: BP 117/57
[2016-12-12 17:25] VITALS: BP 153/67
[2016-12-12 21:15] LABS: POINT-OF-CARE METER ID UU13113725
[2016-12-12 22:00] VITALS: BP 134/66
[2016-12-13 03:50] LABS: INFLUENZA A VIRAL ANTIGEN NEGATIVE; INFLUENZA B VIRAL ANTIGEN NEGATIVE
[2016-12-13 06:00] LABS: POINT-OF-CARE METER ID UU13113725
[2016-12-13 06:38] LABS: EOSINOPHIL (%) 0.4 % (0-5); EOSINOPHIL COUNT 0.1 K/uL (0-0.3); HEMATOCRIT 27.7 % (38.0-50.0); IMMATURE GRANULOCYTE (%) 1.6 % (0.0-0.7); IMMATURE GRANULOCYTE COUNT 0.3 K/uL; LYMPHOCYTE COUNT 1.6 K/uL (1.0-2.8); MCH 27.1 PG (29.0-34.0); MCHC 31.4 G/DL (30.0-36.0); MCV 86.3 FL (86-99); MEAN PLAT.VOLUME 10.8 uM^3 (9.0-12.4); MONOCYTE (%) 7.6 % (3-12); MONOCYTE COUNT 1.3 K/uL (0-0.8); NEUTROPHIL (%) 81.3 % (45-76); PLATELET COUNT 144 K/uL (156-360); RBC DIS.WIDTH-CV 16.5 % (11.8-14.6); RED BLOOD COUNT 3.21 M/uL (4.00-5.50)
[2016-12-13 06:43] LABS: WHITE BLOOD COUNT 17.2 K/uL (4.1-10.2)
[2016-12-13 06:44] LABS: ANION GAP 8 MEQ/L (2-14); CHLORIDE 103 MEQ/L (99-109); GFR ESTIMATE (CALCULATED) 40 mL/min/; GLUCOSE 137 mg/dL (70-99); MAGNESIUM 1.9 mg/dl (1.3-2.7); POTASSIUM 3.9 MEQ/L (3.7-5.4); SAMPLE HEMOLYSIS CHECK 0; SAMPLE ICTERIC CHECK 0; SAMPLE LIPEMIA CHECK 0; SODIUM 135 MEQ/L (136-147); UREA NITROGEN (BUN) 66 mg/dL (9-23)
[2016-12-13 07:55] VITALS: BP 119/58
[2016-12-13 15:01] LABS: ADD MIUA? YES; BILIRUBIN NEGATIVE; BLOOD SMALL; COLOR YELLOW ((YELLOW)); GLUCOSE (STRIP) 150; KETONES NEGATIVE; LEUKOCYTES MODERATE; NITRITE NEGATIVE; PROTEIN (STRIP) 100; SPECIFIC GRAVITY 1.012 (1.000-1.030); UROBILINOGEN 0.2 MG/DL (0.2-1.0)
[2016-12-13 15:31] LABS: UCUL ADDED? YES; WHITE BLOOD CELLS TNTC /HPF (0-5)
[2016-12-13 20:42] VITALS: BP 159/71
[2016-12-13 21:54] LABS: POINT-OF-CARE METER ID UU13113725
[2016-12-13 23:10] VITALS: BP 162/68
[2016-12-14 06:17] LABS: EOSINOPHIL COUNT 0.1 K/uL (0-0.3); HEMATOCRIT 28.7 % (38.0-50.0); IMMATURE GRANULOCYTE (%) 1.4 % (0.0-0.7); IMMATURE GRANULOCYTE COUNT 0.2 K/uL; INSTRUMENT ABS NEUTROPHIL CT 10.2 K/uL; LYMPHOCYTE COUNT 1.1 K/uL (1.0-2.8); MCH 27.3 PG (29.0-34.0); MCHC 31.7 G/DL (30.0-36.0); MCV 86.2 FL (86-99); MEAN PLAT.VOLUME 9.8 uM^3 (9.0-12.4); MONOCYTE (%) 8.7 % (3-12); MONOCYTE COUNT 1.1 K/uL (0-0.8); NEUTROPHIL (%) 80.5 % (45-76); NEUTROPHIL COUNT 10.2 K/uL (1.8-6.4); PLATELET COUNT 145 K/uL (156-360); RBC DIS.WIDTH-CV 16.3 % (11.8-14.6); RED BLOOD COUNT 3.33 M/uL (4.00-5.50); WHITE BLOOD COUNT 12.6 K/uL (4.1-10.2)
[2016-12-14 06:22] LABS: POINT-OF-CARE METER ID UU13113725
[2016-12-14 06:39] LABS: ANION GAP 8 MEQ/L (2-14); CHLORIDE 104 MEQ/L (99-109); GFR ESTIMATE (CALCULATED) 42 mL/min/; GLUCOSE 185 mg/dL (70-99); SAMPLE HEMOLYSIS CHECK 0; SAMPLE ICTERIC CHECK 0; SAMPLE LIPEMIA CHECK 0; SODIUM 136 MEQ/L (136-147); UREA NITROGEN (BUN) 64 mg/dL (9-23)
[2016-12-14 08:43] VITALS: BP 161/71
[2016-12-14 09:12] LABS: INTERNAL CONTROL VALID? YES
[2016-12-14 12:06] VITALS: BP 159/70
[2016-12-14 16:17] VITALS: BP 148/69
[2016-12-14 22:55] VITALS: BP 136/60
[2016-12-15 07:11] LABS: EOSINOPHIL (%) 1.5 % (0-5); EOSINOPHIL COUNT 0.2 K/uL (0-0.3); IMMATURE GRANULOCYTE (%) 1.2 % (0.0-0.7); IMMATURE GRANULOCYTE COUNT 0.1 K/uL; INSTRUMENT ABS NEUTROPHIL CT 8.2 K/uL; LYMPHOCYTE COUNT 1.1 K/uL (1.0-2.8); MCH 27.7 PG (29.0-34.0); MCHC 31.9 G/DL (30.0-36.0); MCV 86.8 FL (86-99); MEAN PLAT.VOLUME 10.8 uM^3 (9.0-12.4); MONOCYTE (%) 11.6 % (3-12); MONOCYTE COUNT 1.3 K/uL (0-0.8); NEUTROPHIL (%) 75.9 % (45-76); NEUTROPHIL COUNT 8.2 K/uL (1.8-6.4); PLATELET COUNT 156 K/uL (156-360); RBC DIS.WIDTH-CV 16.5 % (11.8-14.6); RBC DIS.WIDTH-SD 51.5 % (39-53); RED BLOOD COUNT 3.11 M/uL (4.00-5.50); WHITE BLOOD COUNT 10.9 K/uL (4.1-10.2)
[2016-12-15 07:27] LABS: ANION GAP 9 MEQ/L (2-14); CHLORIDE 103 MEQ/L (99-109); GFR ESTIMATE (CALCULATED) 42 mL/min/; GLUCOSE 219 mg/dL (70-99); POTASSIUM 4.2 MEQ/L (3.7-5.4); SAMPLE HEMOLYSIS CHECK 0; SAMPLE ICTERIC CHECK 0; SAMPLE LIPEMIA CHECK 0; SODIUM 136 MEQ/L (136-147); UREA NITROGEN (BUN) 65 mg/dL (9-23)
[2016-12-15 07:52] VITALS: BP 133/71
[2016-12-15 15:50] VITALS: BP 143/67
[2016-12-15 22:57] VITALS: BP 128/66
[2016-12-16 05:44] LABS: POINT-OF-CARE METER ID UU13113725
[2016-12-16 06:50] LABS: ANION GAP 10 MEQ/L (2-14); CHLORIDE 103 MEQ/L (99-109); GFR ESTIMATE (CALCULATED) 45 mL/min/; GLUCOSE 201 mg/dL (70-99); POTASSIUM 4.4 MEQ/L (3.7-5.4); SAMPLE HEMOLYSIS CHECK 0; SAMPLE ICTERIC CHECK 0; SAMPLE LIPEMIA CHECK 0; SODIUM 136 MEQ/L (136-147); UREA NITROGEN (BUN) 64 mg/dL (9-23)
[2016-12-16 07:18] VITALS: BP 147/75
[2016-12-16 11:18] LABS: POINT-OF-CARE METER ID UU13113725
[2016-12-16] MEDS ORDERED: GLIPIZIDE10 MG PO (12:32)
[2016-12-16] MEDS ORDERED: PREDNISONE10 MG PO (12:32)
[2016-12-16] MEDS ORDERED: LOSARTAN POTAS100 MG PO (12:32)
[2016-12-16] MEDS ORDERED: LEVAQUIN250 MG PO (12:32)
[2016-12-16] MEDS ORDERED: METOLAZONE2.5 MG PO (12:32)
[2016-12-16] MEDS ORDERED: BUMETANIDE1 MG PO (12:32)
[2016-12-16] MEDS ORDERED: FLUCONAZOLE100 MG PO (13:35)
[2016-12-16 15:47] VITALS: BP 137/78
== END 2016-12-16 18:26 | disposition home health service (06) | DRG 189 ==
LOC: EME → EDBD 19:42 → EDOF 23:02 → 5EAST 23:02 → EDOF 23:34 → 5EAST 12-12 01:01
PROVIDERS: Hospitalist; Internal Medicine; Internal Medicine Nephrology
DX: J96.01 Acute respiratory failure with hypoxia (principal); J18.9 Pneumonia, unspecified organism; N17.9 Acute kidney failure, unspecified; G82.20 Paraplegia, unspecified; J45.901 Unspecified asthma with (acute) exacerbation; L97.829 Non-pressure chronic ulcer of other part of left lower leg with unspecified severity; E66.2 Morbid (severe) obesity with alveolar hypoventilation; N18.3 Chronic kidney disease, stage 3 (moderate); I12.9 Hypertensive chronic kidney disease with stage 1 through stage 4 chronic kidney disease, or unspecified chronic kidney disease; J20.9 Acute bronchitis, unspecified; D64.9 Anemia, unspecified; D69.6 Thrombocytopenia, unspecified; E83.51 Hypocalcemia; E11.65 Type 2 diabetes mellitus with hyperglycemia; E11.22 Type 2 diabetes mellitus with diabetic chronic kidney disease; M10.9 Gout, unspecified; Z87.891 Personal history of nicotine dependence; Z68.37 Body mass index [BMI] 37.0-37.9, adult; M48.00 Spinal stenosis, site unspecified; I34.0 Nonrheumatic mitral (valve) insufficiency; I27.2 Other secondary pulmonary hypertension; L30.9 Dermatitis, unspecified; L89.319 Pressure ulcer of right buttock, unspecified stage; L89.329 Pressure ulcer of left buttock, unspecified stage
CPT/HCPCS: 31720; 71010; 80048; 81003; 82948; 83605; 83735; 83880; 84100; 84484; 85025; 85027; 87040; 87070; 87086; 87106; 87205; 87449; 87502; 93005; 94010; 94640; 94640 76; 94660; 94667; 94668; 94799; 97530 GO; 99202; 99281; 99285; A6212; J0456; J0692; J1644; J1815; J1940; J1956; J2930; J3105; J3370; J7050; J7512

== ENCOUNTER 2016-12-23 03:12 | Emergency (ER) | payer OTHER, MEDICARE ==
[~2016-12-23] VITALS: Ht 177.8 cm; Wt 116.3 kg
[~2016-12-23 03:12] MED LIST changes: +BUMETANIDE1 MG PO; +GLIPIZIDE10 MG PO; +LEVAQUIN250 MG PO; +LOSARTAN POTAS100 MG PO; +NYATA15 GM TP; +POTASSIUM CHLO10 ME4 PO
[2016-12-23 04:28] LABS: CARBON DIOXIDE (BICARBONATE) 26.7 MEQ/L (20-31)
[2016-12-23 04:36] LABS: CHLORIDE 105 mEq/L (99-109); SODIUM 137 mEq/L (136-147)
[2016-12-23 04:37] LABS: GLUCOSE 355 mg/dL (70-99)
[2016-12-23 04:39] LABS: ANION GAP 11 MEQ/L (2-14)
[2016-12-23 04:41] LABS: GFR ESTIMATE (CALCULATED) 40 mL/min/
[2016-12-23 04:42] LABS: UREA NITROGEN (BUN) 52 mg/dL (9-23)
[2016-12-23 04:47] LABS: TROP-I INTERPRETATION NEGATIVE; TROPONIN-I 0.02 ng/mL (0.0-0.30)
[2016-12-23 04:54] LABS: HEMATOCRIT 27.8 % (38.0-50.0); MCHC 31.7 G/DL (30.0-36.0); MCV 88.5 FL (86-99); MEAN PLAT.VOLUME 9.4 uM^3 (9.0-12.4); PLATELET COUNT 281 K/uL (156-360); RBC DIS.WIDTH-CV 16.5 % (11.8-14.6); RBC DIS.WIDTH-SD 53.3 % (39-53); RED BLOOD COUNT 3.14 M/uL (4.00-5.50); WHITE BLOOD COUNT 4.4 K/uL (4.1-10.2)
[2016-12-23 06:47] LABS: POINT-OF-CARE METER ID UU14100415
[2016-12-23 10:00] VITALS: BP 171/96
== END 2016-12-23 10:02 | disposition home or self-care (01) ==
LOC: EME → EDBD 03:12 → EME 10:02
PROVIDERS: Emergency Medicine
DX: J96.11 Chronic respiratory failure with hypoxia (principal); J18.8 Other pneumonia, unspecified organism; E11.9 Type 2 diabetes mellitus without complications; D64.9 Anemia, unspecified; I12.9 Hypertensive chronic kidney disease with stage 1 through stage 4 chronic kidney disease, or unspecified chronic kidney disease; J45.909 Unspecified asthma, uncomplicated; N18.3 Chronic kidney disease, stage 3 (moderate); E66.9 Obesity, unspecified; Z68.36 Body mass index [BMI] 36.0-36.9, adult; Z87.891 Personal history of nicotine dependence
CPT/HCPCS: 71020; 80048; 82803; 82948; 83605; 83880; 84484; 85027; 87040; 93005; 94640; 94799; 99281; 99285

== ENCOUNTER 2017-01-05 06:31 | Inpatient (IN) | payer OTHER, MEDICARE ==
[~2017-01-05] VITALS: Ht 180.3 cm; Wt 121.4 kg
[2017-01-05] VITALS (8 sets, daily range): BP systolic 112–139; BP diastolic 50–72
[2017-01-05 07:16] LABS: BASE EXCESS -3.5 mEq/L (-3 to +3); CARBOXY HGB 1.3 % (0-5); METHEMOGLOBIN 0.8 % (0-1.5); pH 7.38 (7.35-7.45)
[2017-01-05 07:17] LABS: BICARBONATE 21.3 mEq/L (22-26); COMMENTS - BLOOD GASES A+C+; DEVICE VENT; FI02 60 %; MODE NIV; PCO2 36 mm Hg (35-45); PEEP 5 CM/H20; PO2 209 mm Hg (80-100); PRES. SUPPORT 10 CM/H2O; SITE LR; TOTAL RESP RATE 19 resp/min
[2017-01-05 07:20] LABS: EOSINOPHIL (%) 0.9 % (0-5); EOSINOPHIL COUNT 0.1 K/uL (0-0.3); HEMATOCRIT 23.8 % (38.0-50.0); IMMATURE GRANULOCYTE (%) 1.4 % (0.0-0.7); IMMATURE GRANULOCYTE COUNT 0.2 K/uL; INSTRUMENT ABS NEUTROPHIL CT 10.4 K/uL; LYMPHOCYTE COUNT 0.9 K/uL (1.0-2.8); MCH 27.1 PG (29.0-34.0); MCHC 29.8 G/DL (30.0-36.0); MCV 90.8 FL (86-99); MEAN PLAT.VOLUME 9.5 uM^3 (9.0-12.4); MONOCYTE (%) 9.2 % (3-12); MONOCYTE COUNT 1.2 K/uL (0-0.8); NEUTROPHIL (%) 81.3 % (45-76); NEUTROPHIL COUNT 10.4 K/uL (1.8-6.4); PLATELET COUNT 287 K/uL (156-360); RBC DIS.WIDTH-CV 16.7 % (11.8-14.6); RBC DIS.WIDTH-SD 55.9 % (39-53); RED BLOOD COUNT 2.62 M/uL (4.00-5.50)
[2017-01-05 07:21] LABS: WHITE BLOOD COUNT 12.8 K/uL (4.1-10.2)
[2017-01-05 07:23] LABS: INTER. NORMALIZED RATIO 1.1; PROTHROMBIN TIME 11.1 (9.2-11.2); PTT 30.1 (25-32)
[2017-01-05 07:50] LABS: ANION GAP 8 MEQ/L (2-14); CHLORIDE 105 MEQ/L (99-109); GFR ESTIMATE (CALCULATED) 24 mL/min/; GLUCOSE 264 mg/dL (70-99); SAMPLE HEMOLYSIS CHECK 0; SAMPLE ICTERIC CHECK 0; SAMPLE LIPEMIA CHECK 0; SODIUM 135 MEQ/L (136-147); UREA NITROGEN (BUN) 53 mg/dL (9-23)
[2017-01-05 07:51] LABS: POTASSIUM 6.5 MEQ/L (3.7-5.4)
[2017-01-05 07:53] LABS: TROP-I INTERPRETATION NEGATIVE; TROPONIN-I 0.02 ng/mL (0.0-0.30)
[2017-01-05 08:26] LABS: CHLORIDE 107 mEq/L (99-109); SODIUM 135 mEq/L (136-147)
[2017-01-05 08:27] LABS: POTASSIUM 6.9 mEq/L (3.7-5.4)
[2017-01-05 08:28] LABS: GLUCOSE 250 mg/dL (70-99)
[2017-01-05 08:29] LABS: ANION GAP 8 MEQ/L (2-14)
[2017-01-05 08:32] LABS: GFR ESTIMATE (CALCULATED) 24 mL/min/; UREA NITROGEN (BUN) 55 mg/dL (9-23)
[2017-01-05 10:33] LABS: ADD MIUA? YES; BILIRUBIN NEGATIVE; BLOOD MODERATE; COLOR PALE YELLOW ((YELLOW)); GLUCOSE (STRIP) NEGATIVE; KETONES SMALL; LEUKOCYTES LARGE; NITRITE NEGATIVE; PROTEIN (STRIP) >2000; UROBILINOGEN 0.2 MG/DL (0.2-1.0)
[2017-01-05 10:34] LABS: BASE EXCESS -2.2 mEq/L (-3 to +3); BICARBONATE 22.3 mEq/L (22-26); CARBOXY HGB 2.1 % (0-5); METHEMOGLOBIN 0.6 % (0-1.5); PCO2 36 mm Hg (35-45)
[2017-01-05 10:35] LABS: COMMENTS - BLOOD GASES A+C+; DEVICE HHFNC; FI02 100 %; O2 FLOW 40 L/MIN; PO2 54 mm Hg (80-100); SITE LR; TOTAL RESP RATE 20 resp/min
[2017-01-05 10:37] LABS: UCUL ADDED? YES; WHITE BLOOD CELLS TNTC /HPF (0-5)
[2017-01-05] MEDS ORDERED: LOSARTAN POTAS100 MG PO (11:08)
[2017-01-05] MEDS ORDERED: COLACE100 MG PO (11:11)
[2017-01-05] MEDS ORDERED: NYSTATIN-TRIAMC15 GM TP (11:12)
[2017-01-05] MEDS ORDERED: SANTYL30 GM TP (11:12)
[2017-01-05 12:04] LABS: CHLORIDE 108 mEq/L (99-109); SODIUM 138 mEq/L (136-147)
[2017-01-05 12:05] LABS: GLUCOSE 217 mg/dL (70-99)
[2017-01-05 12:07] LABS: ANION GAP 7 MEQ/L (2-14); POTASSIUM 6.4 mEq/L (3.7-5.4)
[2017-01-05 12:09] LABS: GFR ESTIMATE (CALCULATED) 24 mL/min/
[2017-01-05 12:10] LABS: UREA NITROGEN (BUN) 54 mg/dL (9-23)
[2017-01-05 14:17] LABS: ANION GAP 8 MEQ/L (2-14); CHLORIDE 105 MEQ/L (99-109); GFR ESTIMATE (CALCULATED) 26 mL/min/; GLUCOSE 169 mg/dL (70-99); SAMPLE HEMOLYSIS CHECK 0; SAMPLE ICTERIC CHECK 0; SAMPLE LIPEMIA CHECK 0; SODIUM 137 MEQ/L (136-147); UREA NITROGEN (BUN) 55 mg/dL (9-23)
[2017-01-05 14:22] LABS: TROP-I INTERPRETATION NEGATIVE; TROPONIN-I 0.01 ng/mL (0.0-0.30)
[2017-01-05 15:35] LABS: METH RESISTANT S AUREUS PCR POSITIVE (NEGATIVE)
[2017-01-05 15:39] LABS: PROBE CHECK PASS
[2017-01-05 19:35] LABS: ANION GAP 11 MEQ/L (2-14); CHLORIDE 104 MEQ/L (99-109); GFR ESTIMATE (CALCULATED) 25 mL/min/; GLUCOSE 129 mg/dL (70-99); POTASSIUM 5.5 MEQ/L (3.7-5.4); SAMPLE HEMOLYSIS CHECK 0; SAMPLE ICTERIC CHECK 0; SAMPLE LIPEMIA CHECK 0; SODIUM 138 MEQ/L (136-147); UREA NITROGEN (BUN) 55 mg/dL (9-23)
[2017-01-05 19:39] LABS: TROP-I INTERPRETATION NEGATIVE; TROPONIN-I 0.02 ng/mL (0.0-0.30)
[2017-01-06] VITALS (13 sets, daily range): BP systolic 114–144; BP diastolic 59–110
[2017-01-06 05:46] LABS: HEMATOCRIT 26.7 % (38.0-50.0); MCH 27.2 PG (29.0-34.0); MCHC 30.7 G/DL (30.0-36.0); MCV 88.7 FL (86-99); MEAN PLAT.VOLUME 9.1 uM^3 (9.0-12.4); PLATELET COUNT 289 K/uL (156-360); RBC DIS.WIDTH-CV 16.9 % (11.8-14.6); RBC DIS.WIDTH-SD 54.5 % (39-53); RED BLOOD COUNT 3.01 M/uL (4.00-5.50); WHITE BLOOD COUNT 15.4 K/uL (4.1-10.2)
[2017-01-06 06:11] LABS: POINT-OF-CARE METER ID UU14174217
[2017-01-06 06:33] LABS: POINT-OF-CARE METER ID UU14174217
[2017-01-06 06:41] LABS: ALKALINE PHOSPHATASE 92 IU/L (3-129); ANION GAP 11 MEQ/L (2-14); CHLORIDE 105 MEQ/L (99-109); GFR ESTIMATE (CALCULATED) 26 mL/min/; POTASSIUM 4.4 MEQ/L (3.7-5.4); SAMPLE HEMOLYSIS CHECK 0; SAMPLE ICTERIC CHECK 0; SAMPLE LIPEMIA CHECK 0; SODIUM 139 MEQ/L (136-147); TOTAL BILIRUBIN 0.2 MG/DL (0.0-1.0); UREA NITROGEN (BUN) 51 mg/dL (9-23)
[2017-01-06 06:42] LABS: GLUCOSE 44 mg/dL (70-99)
[2017-01-06 22:08] LABS: POINT-OF-CARE METER ID UU14174217
[2017-01-06 23:24] LABS: POINT-OF-CARE METER ID UU14174217
[2017-01-07] VITALS (7 sets, daily range): BP systolic 100–118; BP diastolic 52–65
[2017-01-07 00:32] LABS: POINT-OF-CARE METER ID UU14174217
[2017-01-07 04:44] LABS: HEMATOCRIT 25.7 % (38.0-50.0); MCH 28.1 PG (29.0-34.0); MCHC 31.9 G/DL (30.0-36.0); MEAN PLAT.VOLUME 9.4 uM^3 (9.0-12.4); PLATELET COUNT 265 K/uL (156-360); RBC DIS.WIDTH-CV 16.7 % (11.8-14.6); RBC DIS.WIDTH-SD 53.2 % (39-53); RED BLOOD COUNT 2.92 M/uL (4.00-5.50); WHITE BLOOD COUNT 16.1 K/uL (4.1-10.2)
[2017-01-07 05:10] LABS: CHLORIDE 105 mEq/L (99-109); POTASSIUM 4.6 mEq/L (3.7-5.4); SODIUM 137 mEq/L (136-147)
[2017-01-07 05:13] LABS: ANION GAP 13 MEQ/L (2-14)
[2017-01-07 05:16] LABS: GFR ESTIMATE (CALCULATED) 28 mL/min/; UREA NITROGEN (BUN) 51 mg/dL (9-23)
[2017-01-07 05:31] LABS: ABS NEUTROPHIL COUNT 15.8; BAND NEUTROPHILS 0.9 % (0-8.0); EOSINOPHIL ABS CT 0; INSTRUMENT ABS NEUTROPHIL CT 15.3 K/uL; LYMPHOCYTES 1.7 % (15.0-45.0); PLAT.SUFFICIENCY ADEQUATE; PLATELET CLUMPS PRESENT - PLATELET COUNTS APPEARS DECREASED; SEG.NEUTROPHILS 97.4 % (46.0-76.0)
[2017-01-07 05:32] LABS: GLUCOSE 264 mg/dL (70-99)
[2017-01-07 22:12] LABS: POINT-OF-CARE METER ID UU14174217
[2017-01-08] VITALS (17 sets, daily range): BP systolic 95–136; BP diastolic 47–79
[2017-01-08 06:55] LABS: EOSINOPHIL (%) 0 % (0-5); HEMATOCRIT 24.3 % (38.0-50.0); IMMATURE GRANULOCYTE (%) 1.2 % (0.0-0.7); IMMATURE GRANULOCYTE COUNT 0.2 K/uL; INSTRUMENT ABS NEUTROPHIL CT 11.8 K/uL; LYMPHOCYTE COUNT 0.7 K/uL (1.0-2.8); MCH 27.3 PG (29.0-34.0); MCHC 31.3 G/DL (30.0-36.0); MCV 87.4 FL (86-99); MEAN PLAT.VOLUME 9.5 uM^3 (9.0-12.4); MONOCYTE (%) 2.7 % (3-12); MONOCYTE COUNT 0.4 K/uL (0-0.8); NEUTROPHIL (%) 90.5 % (45-76); NEUTROPHIL COUNT 11.8 K/uL (1.8-6.4); PLATELET COUNT 254 K/uL (156-360); RBC DIS.WIDTH-CV 15.9 % (11.8-14.6); RBC DIS.WIDTH-SD 50.2 % (39-53); RED BLOOD COUNT 2.78 M/uL (4.00-5.50); WHITE BLOOD COUNT 13.1 K/uL (4.1-10.2)
[2017-01-08 08:07] LABS: ANION GAP 14 MEQ/L (2-14); CHLORIDE 100 MEQ/L (99-109); GFR ESTIMATE (CALCULATED) 31 mL/min/; GLUCOSE 353 mg/dL (70-99); POTASSIUM 3.3 MEQ/L (3.7-5.4); SAMPLE HEMOLYSIS CHECK 0; SAMPLE ICTERIC CHECK 0; SAMPLE LIPEMIA CHECK 0; SODIUM 134 MEQ/L (136-147); UREA NITROGEN (BUN) 56 mg/dL (9-23)
[2017-01-08 12:52] LABS: POINT-OF-CARE METER ID UU13113731
[2017-01-08 16:13] LABS: POINT-OF-CARE METER ID UU13113731
[2017-01-09] VITALS (7 sets, daily range): BP systolic 104–149; BP diastolic 67–96
[2017-01-09 06:20] LABS: EOSINOPHIL (%) 0 % (0-5); HEMATOCRIT 29.8 % (38.0-50.0); IMM.RETIC FRACTION 18.6 % (3-19); IMMATURE GRANULOCYTE (%) 1.2 % (0.0-0.7); IMMATURE GRANULOCYTE COUNT 0.2 K/uL; INSTRUMENT ABS NEUTROPHIL CT 12.6 K/uL; LYMPHOCYTE COUNT 0.4 K/uL (1.0-2.8); MCH 27.7 PG (29.0-34.0); MCHC 32.6 G/DL (30.0-36.0); MCV 85.1 FL (86-99); MEAN PLAT.VOLUME 9.4 uM^3 (9.0-12.4); MONOCYTE (%) 2.8 % (3-12); MONOCYTE COUNT 0.4 K/uL (0-0.8); NEUTROPHIL (%) 92.7 % (45-76); NEUTROPHIL COUNT 12.6 K/uL (1.8-6.4); PLATELET COUNT 293 K/uL (156-360); RETIC HGB EQUIVALENT 31.4 (28-36); WHITE BLOOD COUNT 13.6 K/uL (4.1-10.2)
[2017-01-09 06:26] LABS: RETICULOCYTE COUNT 1.2 % (0.5-1.8)
[2017-01-09 06:28] LABS: ANION GAP 12 MEQ/L (2-14); CHLORIDE 99 MEQ/L (99-109); GFR ESTIMATE (CALCULATED) 35 mL/min/; GLUCOSE 333 mg/dL (70-99); POTASSIUM 3.5 MEQ/L (3.7-5.4); SAMPLE HEMOLYSIS CHECK 0; SAMPLE ICTERIC CHECK 0; SAMPLE LIPEMIA CHECK 0; SODIUM 132 MEQ/L (136-147); UREA NITROGEN (BUN) 60 mg/dL (9-23)
[2017-01-09 08:15] LABS: FERRITIN 643 NG/ML (22-322)
[2017-01-09 18:05] LABS: POINT-OF-CARE METER ID UU14174217
[2017-01-09 21:17] LABS: POINT-OF-CARE METER ID UU14174217
[2017-01-10] VITALS: BP 121/73
[2017-01-10 04:00] VITALS: BP 107/59
[2017-01-10 07:00] LABS: HEMATOCRIT 34.3 % (38.0-50.0); MCH 27.9 PG (29.0-34.0); MCHC 32.1 G/DL (30.0-36.0); MCV 87.1 FL (86-99); MEAN PLAT.VOLUME 9.2 uM^3 (9.0-12.4); PLATELET COUNT 302 K/uL (156-360); RBC DIS.WIDTH-CV 15.9 % (11.8-14.6); RBC DIS.WIDTH-SD 50.4 % (39-53); RED BLOOD COUNT 3.94 M/uL (4.00-5.50); WHITE BLOOD COUNT 16.5 K/uL (4.1-10.2)
[2017-01-10 07:26] LABS: ANION GAP 11 MEQ/L (2-14); CHLORIDE 98 MEQ/L (99-109); GFR ESTIMATE (CALCULATED) 35 mL/min/; GLUCOSE 352 mg/dL (70-99); MAGNESIUM 1.8 mg/dl (1.3-2.7); SAMPLE HEMOLYSIS CHECK 0; SAMPLE ICTERIC CHECK 0; SAMPLE LIPEMIA CHECK 0; SODIUM 132 MEQ/L (136-147); UREA NITROGEN (BUN) 68 mg/dL (9-23)
[2017-01-10 08:00] VITALS: BP 131/69
[2017-01-10 10:55] LABS: POINT-OF-CARE METER ID UU14174217; POINT-OF-CARE USER ID 606021424
[2017-01-10 12:00] VITALS: BP 124/59
[2017-01-10 16:00] VITALS: BP 125/65
[2017-01-10 23:36] VITALS: BP 155/85
[2017-01-10 23:43] LABS: POINT-OF-CARE METER ID UU13113725
[2017-01-11] VITALS (7 sets, daily range): BP systolic 129–141; BP diastolic 64–74
[2017-01-11 07:15] LABS: EOSINOPHIL (%) 0 % (0-5); HEMATOCRIT 35.4 % (38.0-50.0); IMMATURE GRANULOCYTE (%) 1.7 % (0.0-0.7); IMMATURE GRANULOCYTE COUNT 0.3 K/uL; INSTRUMENT ABS NEUTROPHIL CT 16.5 K/uL; MCH 27.8 PG (29.0-34.0); MCHC 32.8 G/DL (30.0-36.0); MCV 84.9 FL (86-99); MEAN PLAT.VOLUME 9.8 uM^3 (9.0-12.4); MONOCYTE (%) 10.2 % (3-12); NEUTROPHIL (%) 82.7 % (45-76); NEUTROPHIL COUNT 16.5 K/uL (1.8-6.4); PLATELET COUNT 326 K/uL (156-360); RBC DIS.WIDTH-SD 49.5 % (39-53); RED BLOOD COUNT 4.17 M/uL (4.00-5.50)
[2017-01-11 07:53] LABS: ALKALINE PHOSPHATASE 167 IU/L (3-129); ANION GAP 11 MEQ/L (2-14); CHLORIDE 101 MEQ/L (99-109); GFR ESTIMATE (CALCULATED) 45 mL/min/; GLUCOSE 293 mg/dL (70-99); POTASSIUM 4.5 MEQ/L (3.7-5.4); SAMPLE HEMOLYSIS CHECK 1; SAMPLE ICTERIC CHECK 0; SAMPLE LIPEMIA CHECK 0; SODIUM 132 MEQ/L (136-147); TOTAL BILIRUBIN 0.4 MG/DL (0.0-1.0); UREA NITROGEN (BUN) 68 mg/dL (9-23)
[2017-01-11 11:51] LABS: POINT-OF-CARE METER ID UU13113725
[2017-01-11 13:58] LABS: POINT-OF-CARE METER ID UU13113725
[2017-01-11 16:30] LABS: POINT-OF-CARE METER ID UU13113725
[2017-01-11 21:05] LABS: POINT-OF-CARE METER ID UU13113725
[2017-01-12 03:27] VITALS: BP 139/71
[2017-01-12 07:03] LABS: BASOPHIL COUNT 0.1 K/uL (0-0.1); EOSINOPHIL (%) 0.6 % (0-5); EOSINOPHIL COUNT 0.1 K/uL (0-0.3); HEMATOCRIT 36.3 % (38.0-50.0); IMMATURE GRANULOCYTE (%) 2.6 % (0.0-0.7); IMMATURE GRANULOCYTE COUNT 0.6 K/uL; INSTRUMENT ABS NEUTROPHIL CT 17.6 K/uL; LYMPHOCYTE COUNT 1.8 K/uL (1.0-2.8); MCH 27.7 PG (29.0-34.0); MCHC 32.2 G/DL (30.0-36.0); MEAN PLAT.VOLUME 9.1 uM^3 (9.0-12.4); MONOCYTE (%) 7.4 % (3-12); MONOCYTE COUNT 1.6 K/uL (0-0.8); NEUTROPHIL (%) 80.9 % (45-76); NEUTROPHIL COUNT 17.6 K/uL (1.8-6.4); PLATELET COUNT 368 K/uL (156-360); RBC DIS.WIDTH-CV 16.4 % (11.8-14.6); RBC DIS.WIDTH-SD 50.6 % (39-53); RED BLOOD COUNT 4.22 M/uL (4.00-5.50); WHITE BLOOD COUNT 21.8 K/uL (4.1-10.2)
[2017-01-12 07:34] LABS: ANION GAP 9 MEQ/L (2-14); CHLORIDE 100 MEQ/L (99-109); GFR ESTIMATE (CALCULATED) 49 mL/min/; GLUCOSE 169 mg/dL (70-99); POTASSIUM 4.3 MEQ/L (3.7-5.4); SAMPLE HEMOLYSIS CHECK 0; SAMPLE ICTERIC CHECK 0; SAMPLE LIPEMIA CHECK 0; SODIUM 134 MEQ/L (136-147); UREA NITROGEN (BUN) 69 mg/dL (9-23)
[2017-01-12 08:35] VITALS: BP 141/63
[2017-01-12 12:30] VITALS: BP 146/70
[2017-01-12 16:30] LABS: POINT-OF-CARE METER ID UU13113725
[2017-01-12 17:07] VITALS: BP 166/79
[2017-01-12 19:38] VITALS: BP 143/78
[2017-01-13 00:14] VITALS: BP 121/60
[2017-01-13 03:51] VITALS: BP 130/68
[2017-01-13 07:01] VITALS: BP 152/71
[2017-01-13 07:28] LABS: ANION GAP 11 MEQ/L (2-14); CHLORIDE 100 MEQ/L (99-109); GFR ESTIMATE (CALCULATED) 45 mL/min/; GLUCOSE 160 mg/dL (70-99); POTASSIUM 4.3 MEQ/L (3.7-5.4); SAMPLE HEMOLYSIS CHECK 0; SAMPLE ICTERIC CHECK 0; SAMPLE LIPEMIA CHECK 0; SODIUM 135 MEQ/L (136-147); UREA NITROGEN (BUN) 73 mg/dL (9-23)
[2017-01-13 09:31] LABS: EOSINOPHIL (%) 1.1 % (0-5); EOSINOPHIL COUNT 0.2 K/uL (0-0.3); HEMATOCRIT 35.1 % (38.0-50.0); IMMATURE GRANULOCYTE (%) 2.5 % (0.0-0.7); IMMATURE GRANULOCYTE COUNT 0.4 K/uL; INSTRUMENT ABS NEUTROPHIL CT 11.6 K/uL; LYMPHOCYTE COUNT 1.5 K/uL (1.0-2.8); MCH 28.3 PG (29.0-34.0); MCHC 32.2 G/DL (30.0-36.0); MEAN PLAT.VOLUME 9.5 uM^3 (9.0-12.4); MONOCYTE (%) 7.1 % (3-12); NEUTROPHIL (%) 78.7 % (45-76); NEUTROPHIL COUNT 11.6 K/uL (1.8-6.4); PLATELET COUNT 325 K/uL (156-360); RBC DIS.WIDTH-CV 16.9 % (11.8-14.6); RBC DIS.WIDTH-SD 53.3 % (39-53); RED BLOOD COUNT 3.99 M/uL (4.00-5.50)
[2017-01-13 09:32] LABS: WHITE BLOOD COUNT 14.7 K/uL (4.1-10.2)
[2017-01-13 10:26] VITALS: BP 159/73
[2017-01-13 11:53] LABS: POINT-OF-CARE METER ID UU13113725
[2017-01-13] MEDS ORDERED: PREDNISONE20 MG PO (13:25)
[2017-01-13] MEDS ORDERED: ELIQUIS5 MG PO (13:25)
[2017-01-13] MEDS ORDERED: LOSARTAN POTASS25 MG PO (13:25)
[2017-01-13] MEDS ORDERED: FLUCONAZOLE100 MG PO (13:25)
[2017-01-13] MEDS ORDERED: MONTELUKAST SOD10 MG PO (13:30)
[2017-01-13] MEDS ORDERED: BUMETANIDE1 MG PO (13:30)
[2017-01-13 15:29] VITALS: BP 155/71
[2017-01-13 19:13] LABS: POINT-OF-CARE METER ID UU13113725
[2017-01-13 21:34] LABS: POINT-OF-CARE METER ID UU13113725
[2017-01-13 22:58] VITALS: BP 157/71
[2017-01-14 00:38] LABS: POINT-OF-CARE METER ID UU13113725
[2017-01-14 03:21] LABS: POINT-OF-CARE METER ID UU13113725
[2017-01-14 05:17] LABS: HEMATOCRIT 33.2 % (38.0-50.0); MCH 28.1 PG (29.0-34.0); MCHC 32.2 G/DL (30.0-36.0); MCV 87.1 FL (86-99); MEAN PLAT.VOLUME 9.4 uM^3 (9.0-12.4); PLATELET COUNT 335 K/uL (156-360); RBC DIS.WIDTH-SD 53.3 % (39-53); RED BLOOD COUNT 3.81 M/uL (4.00-5.50); WHITE BLOOD COUNT 13.7 K/uL (4.1-10.2)
[2017-01-14 05:50] LABS: ANION GAP 8 MEQ/L (2-14); CHLORIDE 101 MEQ/L (99-109); GFR ESTIMATE (CALCULATED) 58 mL/min/; GLUCOSE 100 mg/dL (70-99); POTASSIUM 4.3 MEQ/L (3.7-5.4); SAMPLE HEMOLYSIS CHECK 0; SAMPLE ICTERIC CHECK 0; SAMPLE LIPEMIA CHECK 0; SODIUM 136 MEQ/L (136-147); UREA NITROGEN (BUN) 71 mg/dL (9-23)
[2017-01-14 07:06] VITALS: BP 162/68
[2017-01-17 14:59] LABS: POINT-OF-CARE METER ID UU13113725
[2017-01-17 14:59] LABS: POINT-OF-CARE METER ID UU13113725
== END 2017-01-14 12:46 | disposition home health service (06) | DRG 190 ==
LOC: EME → EDBD 06:31 → EDOF 11:41 → 4WEST 11:41 → 5EAST 01-10 17:13
PROVIDERS: Emergency Medicine; Hospitalist; Internal Medicine; Internal Medicine Nephrology
PROC: 30233N1 Transfusion of Nonautologous Red Blood Cells into Peripheral Vein, Percutaneous Approach (ICD-10-PCS; principal; 2017-01-05)
PROC: 5A09357 Assistance with Respiratory Ventilation, Less than 24 Consecutive Hours, Continuous Positive Airway Pressure (ICD-10-PCS; 2017-01-06)
PROC: 0BC58ZZ Extirpation of Matter from Right Middle Lobe Bronchus, Via Natural or Artificial Opening Endoscopic (ICD-10-PCS; 2017-01-08)
PROC: 0BC68ZZ Extirpation of Matter from Right Lower Lobe Bronchus, Via Natural or Artificial Opening Endoscopic (ICD-10-PCS; 2017-01-08)
DX: J44.1 Chronic obstructive pulmonary disease with (acute) exacerbation (principal); J96.21 Acute and chronic respiratory failure with hypoxia; L89.153 Pressure ulcer of sacral region, stage 3; N17.0 Acute kidney failure with tubular necrosis; J18.9 Pneumonia, unspecified organism; I82.422 Acute embolism and thrombosis of left iliac vein; I82.442 Acute embolism and thrombosis of left tibial vein; J98.11 Atelectasis; G82.20 Paraplegia, unspecified; B37.49 Other urogenital candidiasis; J90 Pleural effusion, not elsewhere classified; L89.312 Pressure ulcer of right buttock, stage 2; B36.9 Superficial mycosis, unspecified; I48.2 Chronic atrial fibrillation; D63.1 Anemia in chronic kidney disease; E11.22 Type 2 diabetes mellitus with diabetic chronic kidney disease; I12.9 Hypertensive chronic kidney disease with stage 1 through stage 4 chronic kidney disease, or unspecified chronic kidney disease; N18.3 Chronic kidney disease, stage 3 (moderate); R32 Unspecified urinary incontinence; E87.5 Hyperkalemia; J98.09 Other diseases of bronchus, not elsewhere classified; I87.8 Other specified disorders of veins; Z74.09 Other reduced mobility; M10.9 Gout, unspecified; M48.00 Spinal stenosis, site unspecified; G89.29 Other chronic pain; L30.4 Erythema intertrigo; L22 Diaper dermatitis; E66.9 Obesity, unspecified; I27.2 Other secondary pulmonary hypertension; I36.1 Nonrheumatic tricuspid (valve) insufficiency; S14.13 Anterior cord syndrome of cervical spinal cord; I34.0 Nonrheumatic mitral (valve) insufficiency; I48.0 Paroxysmal atrial fibrillation; F41.9 Anxiety disorder, unspecified; Z99.81 Dependence on supplemental oxygen; E87.6 Hypokalemia; Z68.37 Body mass index [BMI] 37.0-37.9, adult; Z87.891 Personal history of nicotine dependence; Z86.14 Personal history of Methicillin resistant Staphylococcus aureus infection; Z79.84 Long term (current) use of oral hypoglycemic drugs; Z09 Encounter for follow-up examination after completed treatment for conditions other than malignant neoplasm; Z82.49 Family history of ischemic heart disease and other diseases of the circulatory system; Z80.1 Family history of malignant neoplasm of trachea, bronchus and lung
CPT/HCPCS: 36600; 71010; 71250; 78580; 80048; 80048 91; 80053; 81003; 82272; 82607; 82728; 82746; 82803; 82948; 83605; 83735; 83880; 84484; 85025; 85027; 85045; 85610; 85730; 86900; 86901; 86920; 87040; 87070; 87086; 87106; 87107; 87116; 87205; 87206; 87641; 93005; 93970; 94002; 94010; 94640; 94640 76; 94660; 94667; 94668; 94760; 94799; 97530 GO; 97530 GP; 99202; 99281; 99285; A6260; A9540; J0692; J0696; J1815; J2250; J2930; J7030; J7050; J7512; P9016; P9040

== ENCOUNTER 2017-01-26 20:32 | Inpatient (IN) | payer OTHER, MEDICARE ==
[~2017-01-26] VITALS: Ht 180.3 cm; Wt 115.7 kg
[~2017-01-26 20:32] MED LIST changes: +COLACE100 MG PO; +ELIQUIS5 MG PO; +LOSARTAN POTASS25 MG PO; +MONTELUKAST SOD10 MG PO
[2017-01-26 22:39] LABS: EOSINOPHIL (%) 2.3 % (0-5); EOSINOPHIL COUNT 0.2 K/uL (0-0.3); HEMATOCRIT 33.5 % (38.0-50.0); IMMATURE GRANULOCYTE (%) 0.5 % (0.0-0.7); INSTRUMENT ABS NEUTROPHIL CT 5.3 K/uL; MCH 27.7 PG (29.0-34.0); MCV 89.3 FL (86-99); MONOCYTE COUNT 0.8 K/uL (0-0.8); NEUTROPHIL (%) 72.4 % (45-76); NEUTROPHIL COUNT 5.3 K/uL (1.8-6.4); RBC DIS.WIDTH-CV 16.4 % (11.8-14.6); RBC DIS.WIDTH-SD 53.6 % (39-53); RED BLOOD COUNT 3.75 M/uL (4.00-5.50)
[2017-01-26 22:59] LABS: WHITE BLOOD COUNT 7.4 K/uL (4.1-10.2)
[2017-01-26 23:17] LABS: TROP-I INTERPRETATION NEGATIVE; TROPONIN-I 0.02 ng/mL (0.0-0.30)
[2017-01-27 00:33] LABS: ALKALINE PHOSPHATASE 120 IU/L (3-129); ANION GAP 16 MEQ/L (2-14); CHLORIDE 102 MEQ/L (99-109); GFR ESTIMATE (CALCULATED) 42 mL/min/; GLUCOSE 165 mg/dL (70-99); HDL CHOLESTEROL 38 MG/DL (Desirable>=40); LDL CHOLESTEROL 67 mg/dL (Desirable<100); LIPASE 4 U/L (1.0-51.0); NON-HDL CHOLESTEROL 85 mg/dL (Desirable<160); POTASSIUM 5.9 MEQ/L (3.7-5.4); SAMPLE HEMOLYSIS CHECK 2; SAMPLE ICTERIC CHECK 0; SAMPLE LIPEMIA CHECK 0; SODIUM 135 MEQ/L (136-147); TOTAL BILIRUBIN 0.4 MG/DL (0.0-1.0); TOTAL CHOLESTEROL 123 mg/dL (Desirable<200); TRIGLYCERIDES 90 MG/DL (Normal: <150); UREA NITROGEN (BUN) 79 mg/dL (9-23)
[2017-01-27 00:40] LABS: MEAN PLAT.VOLUME 9.7 uM^3 (9.0-12.4); PLAT.SUFFICIENCY ADEQUATE; PLATELET COUNT 216 K/uL (156-360)
[2017-01-27 01:01] LABS: POTASSIUM 5.2 mEq/L (3.7-5.4)
[2017-01-27 02:45] LABS: ADD MIUA? YES; BILIRUBIN NEGATIVE; BLOOD MODERATE; COLOR YELLOW ((YELLOW)); GLUCOSE (STRIP) NEGATIVE; KETONES NEGATIVE; LEUKOCYTES LARGE; NITRITE NEGATIVE; PROTEIN (STRIP) >=500; UROBILINOGEN 0.2 MG/DL (0.2-1.0)
[2017-01-27 03:00] LABS: UCUL ADDED? YES; WHITE BLOOD CELLS TNTC /HPF (0-5)
[2017-01-27] MEDS ORDERED: TRESIBA FL100 UNIT/1 SC (05:08)
[2017-01-27 06:41] LABS: HEMATOCRIT 30.7 % (38.0-50.0); MCHC 31.6 G/DL (30.0-36.0); MCV 88.7 FL (86-99); MEAN PLAT.VOLUME 9.6 uM^3 (9.0-12.4); PLATELET COUNT 226 K/uL (156-360); RBC DIS.WIDTH-CV 16.3 % (11.8-14.6); RBC DIS.WIDTH-SD 52.7 % (39-53); RED BLOOD COUNT 3.46 M/uL (4.00-5.50); WHITE BLOOD COUNT 8.1 K/uL (4.1-10.2)
[2017-01-27 07:34] LABS: Estimated Average Glucose 192 mg/dL (70-123); HEMOGLOBIN A1c (GLYCOHEMOGLOB) 8.3 % HGB (Below 5.7)
[2017-01-27] MEDS ORDERED: APRESOLINE25 MG PO (08:58)
[2017-01-27] MEDS ORDERED: BUMEX1 MG PO (09:00)
[2017-01-27] MEDS ORDERED: TOUJEO SOL300 UNIT/1 SC (09:04)
[2017-01-27 11:48] LABS: CHLORIDE 104 mEq/L (99-109); SODIUM 138 mEq/L (136-147)
[2017-01-27 11:49] LABS: GLUCOSE 132 mg/dL (70-99)
[2017-01-27 11:51] LABS: ANION GAP 14 MEQ/L (2-14)
[2017-01-27 11:53] LABS: GFR ESTIMATE (CALCULATED) 35 mL/min/
[2017-01-27 11:54] LABS: UREA NITROGEN (BUN) 85 mg/dL (9-23)
[2017-01-27 15:28] LABS: POINT-OF-CARE METER ID UU13113702
[2017-01-27 16:48] VITALS: BP 110/58
[2017-01-27 19:51] VITALS: BP 126/59
[2017-01-27 23:48] VITALS: BP 122/58
[2017-01-27 23:52] LABS: POINT-OF-CARE METER ID UU14174225
[2017-01-28 03:44] VITALS: BP 96/55
[2017-01-28 03:45] LABS: POINT-OF-CARE METER ID UU14188625
[2017-01-28 06:09] LABS: MCH 27.5 PG (29.0-34.0); MCHC 30.4 G/DL (30.0-36.0); MCV 90.6 FL (86-99); MEAN PLAT.VOLUME 9.9 uM^3 (9.0-12.4); PLATELET COUNT 211 K/uL (156-360); RBC DIS.WIDTH-CV 16.5 % (11.8-14.6); RBC DIS.WIDTH-SD 54.9 % (39-53); RED BLOOD COUNT 2.98 M/uL (4.00-5.50); WHITE BLOOD COUNT 7.9 K/uL (4.1-10.2)
[2017-01-28 06:35] LABS: CHLORIDE 104 mEq/L (99-109); POTASSIUM 5.8 mEq/L (3.7-5.4); SODIUM 137 mEq/L (136-147)
[2017-01-28 06:38] LABS: ANION GAP 12 MEQ/L (2-14)
[2017-01-28 06:40] LABS: GFR ESTIMATE (CALCULATED) 42 mL/min/
[2017-01-28 06:41] LABS: UREA NITROGEN (BUN) 75 mg/dL (9-23)
[2017-01-28 06:44] LABS: GLUCOSE 76 mg/dL (70-99)
[2017-01-28 07:22] VITALS: BP 107/55
[2017-01-28 07:31] LABS: ABS NEUTROPHIL COUNT 6.2; ANISOCYTOSIS 1+; BAND NEUTROPHILS 10.5 % (0-8.0); BASOPHILS 0.9 %; EOSINOPHIL ABS CT 0.1; EOSINOPHILS 1.8 % (0-5.0); INSTRUMENT ABS NEUTROPHIL CT 5.7 K/uL; LYMPHOCYTES 9.6 % (15.0-45.0); MACROCYTES 1+; METAMYELOCYTES 0.9 %; MYELOCYTES 0.9 %; NUCLEATED RBC'S 0.9; PLAT.SUFFICIENCY ADEQUATE; POIKILOCYTOSIS 1+; SPHEROCYTES 1+
[2017-01-28 07:43] LABS: SEG.NEUTROPHILS 68.4 % (46.0-76.0)
[2017-01-28 07:49] LABS: POINT-OF-CARE METER ID UU14174225
[2017-01-28 11:09] VITALS: BP 123/60
[2017-01-28 11:34] LABS: POINT-OF-CARE METER ID UU14174225
[2017-01-28] MEDS ORDERED: ATORVASTATIN CA40 MG PO (13:23)
[2017-01-28 15:06] LABS: ANION GAP 8 MEQ/L (2-14); CHLORIDE 103 MEQ/L (99-109); GFR ESTIMATE (CALCULATED) 40 mL/min/; SAMPLE HEMOLYSIS CHECK 0; SAMPLE ICTERIC CHECK 0; SAMPLE LIPEMIA CHECK 0; SODIUM 138 MEQ/L (136-147); UREA NITROGEN (BUN) 72 mg/dL (9-23)
[2017-01-28 15:07] LABS: GLUCOSE 143 mg/dL (70-99)
[2017-01-28 15:50] VITALS: BP 128/59
[2017-01-28 17:39] LABS: POINT-OF-CARE METER ID UU14188625
[2017-01-28 19:55] VITALS: BP 132/63
[2017-01-28 21:18] LABS: POINT-OF-CARE METER ID UU14188625
[2017-01-28 23:24] VITALS: BP 92/51
[2017-01-29 03:22] VITALS: BP 111/57
[2017-01-29 05:05] LABS: POINT-OF-CARE METER ID UU14174225
[2017-01-29 07:33] VITALS: BP 126/58
[2017-01-29 07:45] LABS: HEMATOCRIT 29.7 % (38.0-50.0); MCH 27.7 PG (29.0-34.0); MCHC 30.6 G/DL (30.0-36.0); MCV 90.5 FL (86-99); MEAN PLAT.VOLUME 9.9 uM^3 (9.0-12.4); PLATELET COUNT 229 K/uL (156-360); RBC DIS.WIDTH-CV 16.1 % (11.8-14.6); RBC DIS.WIDTH-SD 54.4 % (39-53); RED BLOOD COUNT 3.28 M/uL (4.00-5.50); WHITE BLOOD COUNT 8.1 K/uL (4.1-10.2)
[2017-01-29 09:01] LABS: ANION GAP 8 MEQ/L (2-14); CHLORIDE 104 MEQ/L (99-109); FERRITIN 698 NG/ML (22-322); GFR ESTIMATE (CALCULATED) 42 mL/min/; GLUCOSE 89 mg/dL (70-99); IRON 25 MCG/DL (35-150); SAMPLE HEMOLYSIS CHECK 0; SAMPLE ICTERIC CHECK 0; SAMPLE LIPEMIA CHECK 0; SODIUM 137 MEQ/L (136-147); UREA NITROGEN (BUN) 66 mg/dL (9-23)
[2017-01-29 09:04] LABS: BASE EXCESS 2.8 mEq/L (-3 to +3); BICARBONATE 27.2 mEq/L (22-26); CARBOXY HGB 1.7 % (0-5); COMMENTS - BLOOD GASES A+C+; DEVICE NC; METHEMOGLOBIN 1.5 % (0-1.5); O2 FLOW 3 L/MIN; PCO2 40 mm Hg (35-45); PO2 54 mm Hg (80-100); SITE LR; TOTAL RESP RATE 14 resp/min; pH 7.44 (7.35-7.45)
[2017-01-29 15:30] VITALS: BP 135/75
[2017-01-29 19:00] VITALS: BP 124/59
[2017-01-30] VITALS (9 sets, daily range): BP systolic 95–154; BP diastolic 51–81
[2017-01-30 05:50] LABS: HEMATOCRIT 31.1 % (38.0-50.0); MCH 28.4 PG (29.0-34.0); MCHC 31.8 G/DL (30.0-36.0); MCV 89.1 FL (86-99); RBC DIS.WIDTH-SD 52.3 % (39-53); RED BLOOD COUNT 3.49 M/uL (4.00-5.50); WHITE BLOOD COUNT 7.6 K/uL (4.1-10.2)
[2017-01-30 06:29] LABS: ANION GAP 6 MEQ/L (2-14); CHLORIDE 104 MEQ/L (99-109); GFR ESTIMATE (CALCULATED) 49 mL/min/; POTASSIUM 5.3 MEQ/L (3.7-5.4); SAMPLE HEMOLYSIS CHECK 1; SAMPLE ICTERIC CHECK 0; SAMPLE LIPEMIA CHECK 0; SODIUM 135 MEQ/L (136-147); UREA NITROGEN (BUN) 60 mg/dL (9-23)
[2017-01-30 06:30] LABS: GLUCOSE 248 mg/dL (70-99)
[2017-01-30 06:45] LABS: PLATELET CLUMPS PRESENT - PLATELET COUNT APPEARS ADQ.
[2017-01-30 08:18] LABS: POINT-OF-CARE USER ID NUTSLF44
[2017-01-30 13:47] LABS: INTER. NORMALIZED RATIO 1.2; PROTHROMBIN TIME 12.1 (9.2-11.2); PTT 41.4 (25-32)
[2017-01-30 16:08] LABS: TYPE OF FLUID PLEURAL
[2017-01-30 16:46] LABS: POINT-OF-CARE USER ID NUTSLF44
[2017-01-30 16:54] LABS: BODY FLUID EOSINOPHILS 0 % (0-25); BODY FLUID RBC'S 1000 /MM^3 (0-100); BODY FLUID WBC'S 712 /MM^3 (0-500); MONONUCLEAR WBC'S 36 %; POLYNUCLEAR WBC'S 64 % (0-25)
[2017-01-30 16:56] LABS: BODY FLUID LDH 64 IU/L; BODY FLUID PROTEIN < 3.0 G/DL
[2017-01-30 22:02] LABS: POINT-OF-CARE METER ID UU14174216
[2017-01-30 22:18] LABS: BASE EXCESS 0.2 mEq/L (-3 to +3); BICARBONATE 27.4 mEq/L (22-26); CARBOXY HGB 1.4 % (0-5); METHEMOGLOBIN 1.4 % (0-1.5); pH 7.29 (7.35-7.45)
[2017-01-30 22:19] LABS: COMMENTS - BLOOD GASES A+C+; DEVICE VENT; FI02 100 %; MECHANICAL RATE 16 resp/min; MODE A/C; PCO2 57 mm Hg (35-45); PEEP 5 CM/H20; PO2 326 mm Hg (80-100); SITE RR; TIDAL VOLUME 500 ML; TOTAL RESP RATE 16 resp/min
[2017-01-30 23:18] LABS: HEMATOCRIT 30.4 % (38.0-50.0); MCH 27.5 PG (29.0-34.0); MCHC 30.3 G/DL (30.0-36.0); MEAN PLAT.VOLUME 9.7 uM^3 (9.0-12.4); PLATELET COUNT 272 K/uL (156-360); RBC DIS.WIDTH-CV 15.8 % (11.8-14.6); RBC DIS.WIDTH-SD 52.4 % (39-53); RED BLOOD COUNT 3.34 M/uL (4.00-5.50); WHITE BLOOD COUNT 9.1 K/uL (4.1-10.2)
[2017-01-30 23:31] LABS: CHLORIDE 103 mEq/L (99-109); POTASSIUM 5.3 mEq/L (3.7-5.4); SODIUM 135 mEq/L (136-147)
[2017-01-30 23:32] LABS: MAGNESIUM 1.6 mg/dL (1.3-2.7)
[2017-01-30 23:34] LABS: GLUCOSE 268 mg/dL (70-99)
[2017-01-30 23:35] LABS: ANION GAP 9 MEQ/L (2-14); TOTAL BILIRUBIN 0.2 mg/dL (0.0-1.0)
[2017-01-30 23:37] LABS: ALKALINE PHOSPHATASE 119 IU/L (3-129); GFR ESTIMATE (CALCULATED) 49 mL/min/
[2017-01-30 23:38] LABS: UREA NITROGEN (BUN) 53 mg/dL (9-23)
[2017-01-30 23:40] LABS: TROP-I INTERPRETATION NEGATIVE; TROPONIN-I < 0.01 ng/mL (0.0-0.30)
[2017-01-30 23:48] LABS: METH RESISTANT S AUREUS PCR POSITIVE (NEGATIVE)
[2017-01-31] VITALS (21 sets, daily range): BP systolic 66–127; BP diastolic 38–68
[2017-01-31 00:11] LABS: PROBE CHECK PASS
[2017-01-31 02:06] LABS: POINT-OF-CARE METER ID UU14174217
[2017-01-31 05:10] LABS: CHLORIDE 106 mEq/L (99-109); SODIUM 136 mEq/L (136-147)
[2017-01-31 05:11] LABS: GLUCOSE 201 mg/dL (70-99)
[2017-01-31 05:13] LABS: ANION GAP 11 MEQ/L (2-14)
[2017-01-31 05:15] LABS: GFR ESTIMATE (CALCULATED) 49 mL/min/
[2017-01-31 05:16] LABS: UREA NITROGEN (BUN) 54 mg/dL (9-23)
[2017-01-31 05:19] LABS: HEMATOCRIT 35.7 % (38.0-50.0); MCH 28.1 PG (29.0-34.0); MCHC 31.4 G/DL (30.0-36.0); MCV 89.7 FL (86-99); NRBC (%) 0.7 /100 WBC (0-0); RBC DIS.WIDTH-CV 15.9 % (11.8-14.6); RBC DIS.WIDTH-SD 52.3 % (39-53); RED BLOOD COUNT 3.98 M/uL (4.00-5.50); WHITE BLOOD COUNT 11.3 K/uL (4.1-10.2)
[2017-01-31 06:12] LABS: PLAT.SUFFICIENCY ADEQUATE; PLATELET CLUMPS PRESENT - PLATELET COUNT APPEARS ADQ.; PLATELET COUNT UNABLE TO REPORT K/uL (156-360)
[2017-01-31 12:20] LABS: POINT-OF-CARE METER ID UU14162636
[2017-01-31 15:33] LABS: ANION GAP 11 MEQ/L (2-14); CHLORIDE 106 MEQ/L (99-109); GFR ESTIMATE (CALCULATED) 49 mL/min/; GLUCOSE 154 mg/dL (70-99); POTASSIUM 5.4 MEQ/L (3.7-5.4); SAMPLE HEMOLYSIS CHECK 1; SAMPLE ICTERIC CHECK 0; SAMPLE LIPEMIA CHECK 0; SODIUM 136 MEQ/L (136-147); UREA NITROGEN (BUN) 55 mg/dL (9-23)
[2017-01-31 17:14] LABS: POINT-OF-CARE METER ID UU13113731
[2017-02-01] VITALS (24 sets, daily range): BP systolic 116–160; BP diastolic 61–90
[2017-02-01 05:57] LABS: HEMATOCRIT 25.1 % (38.0-50.0); MCH 28.5 PG (29.0-34.0); MCHC 31.9 G/DL (30.0-36.0); MCV 89.3 FL (86-99); MEAN PLAT.VOLUME 9.5 uM^3 (9.0-12.4); PLATELET COUNT 217 K/uL (156-360); WHITE BLOOD COUNT 10.6 K/uL (4.1-10.2)
[2017-02-01 05:59] LABS: RED BLOOD COUNT 2.81 M/uL (4.00-5.50)
[2017-02-01 08:00] LABS: ANION GAP 10 MEQ/L (2-14); CHLORIDE 109 MEQ/L (99-109); GFR ESTIMATE (CALCULATED) > 59 mL/min/; GLUCOSE 127 mg/dL (70-99); MAGNESIUM 2.1 mg/dl (1.3-2.7); POTASSIUM 4.8 MEQ/L (3.7-5.4); SAMPLE HEMOLYSIS CHECK 0; SAMPLE ICTERIC CHECK 0; SAMPLE LIPEMIA CHECK 0; SODIUM 140 MEQ/L (136-147); UREA NITROGEN (BUN) 45 mg/dL (9-23)
[2017-02-01 12:30] LABS: POINT-OF-CARE USER ID 612031313
[2017-02-01 18:11] LABS: POINT-OF-CARE USER ID 612031313
[2017-02-02] VITALS (24 sets, daily range): BP systolic 123–168; BP diastolic 66–119
[2017-02-02 00:38] LABS: POINT-OF-CARE METER ID UU13113803
[2017-02-02 05:30] LABS: HEMATOCRIT 28.7 % (38.0-50.0); MCV 90.3 FL (86-99); MEAN PLAT.VOLUME 9.3 uM^3 (9.0-12.4); PLATELET COUNT 267 K/uL (156-360); RBC DIS.WIDTH-CV 15.9 % (11.8-14.6); RBC DIS.WIDTH-SD 52.7 % (39-53); RED BLOOD COUNT 3.18 M/uL (4.00-5.50)
[2017-02-02 05:31] LABS: WHITE BLOOD COUNT 15.4 K/uL (4.1-10.2)
[2017-02-02 06:05] LABS: ANION GAP 12 MEQ/L (2-14); CHLORIDE 109 MEQ/L (99-109); GFR ESTIMATE (CALCULATED) > 59 mL/min/; MAGNESIUM 2.2 mg/dl (1.3-2.7); POTASSIUM 4.5 MEQ/L (3.7-5.4); SAMPLE HEMOLYSIS CHECK 0; SAMPLE ICTERIC CHECK 0; SAMPLE LIPEMIA CHECK 0; SODIUM 140 MEQ/L (136-147); UREA NITROGEN (BUN) 45 mg/dL (9-23)
[2017-02-02 06:06] LABS: GLUCOSE 225 mg/dL (70-99)
[2017-02-02 06:35] LABS: POINT-OF-CARE METER ID UU13113731
[2017-02-02 12:09] LABS: POINT-OF-CARE METER ID UU14174217
[2017-02-02 18:02] LABS: POINT-OF-CARE METER ID UU13113731
[2017-02-03] VITALS (24 sets, daily range): BP systolic 130–166; BP diastolic 63–99
[2017-02-03 00:16] LABS: POINT-OF-CARE METER ID UU13113803
[2017-02-03 06:04] LABS: MCH 28.9 PG (29.0-34.0); MCHC 31.7 G/DL (30.0-36.0); MCV 91.2 FL (86-99); MEAN PLAT.VOLUME 9.7 uM^3 (9.0-12.4); PLATELET COUNT 329 K/uL (156-360); RBC DIS.WIDTH-CV 16.4 % (11.8-14.6); RBC DIS.WIDTH-SD 54.6 % (39-53); RED BLOOD COUNT 3.18 M/uL (4.00-5.50); WHITE BLOOD COUNT 16.4 K/uL (4.1-10.2)
[2017-02-03 06:09] LABS: POINT-OF-CARE METER ID UU14162636
[2017-02-03 06:44] LABS: ANION GAP 9 MEQ/L (2-14); CHLORIDE 110 MEQ/L (99-109); GFR ESTIMATE (CALCULATED) 58 mL/min/; GLUCOSE 296 mg/dL (70-99); MAGNESIUM 2.1 mg/dl (1.3-2.7); POTASSIUM 4.8 MEQ/L (3.7-5.4); SAMPLE HEMOLYSIS CHECK 0; SAMPLE ICTERIC CHECK 0; SAMPLE LIPEMIA CHECK 0; SODIUM 141 MEQ/L (136-147); UREA NITROGEN (BUN) 48 mg/dL (9-23)
[2017-02-03 14:17] LABS: POINT-OF-CARE METER ID UU13113803
[2017-02-03 17:50] LABS: POINT-OF-CARE METER ID UU13113731; POINT-OF-CARE USER ID 606021424
[2017-02-04] VITALS (17 sets, daily range): BP systolic 117–155; BP diastolic 56–116
[2017-02-04 00:47] LABS: POINT-OF-CARE METER ID UU13113731
[2017-02-04 06:00] LABS: HEMATOCRIT 28.4 % (38.0-50.0); MCH 27.7 PG (29.0-34.0); MCHC 30.6 G/DL (30.0-36.0); MCV 90.4 FL (86-99); MEAN PLAT.VOLUME 9.2 uM^3 (9.0-12.4); PLATELET COUNT 302 K/uL (156-360); RBC DIS.WIDTH-CV 16.3 % (11.8-14.6); RBC DIS.WIDTH-SD 53.9 % (39-53); RED BLOOD COUNT 3.14 M/uL (4.00-5.50); WHITE BLOOD COUNT 19.7 K/uL (4.1-10.2)
[2017-02-04 06:25] LABS: ANION GAP 9 MEQ/L (2-14); CHLORIDE 109 MEQ/L (99-109); GFR ESTIMATE (CALCULATED) > 59 mL/min/; GLUCOSE 255 mg/dL (70-99); POTASSIUM 5.1 MEQ/L (3.7-5.4); SAMPLE HEMOLYSIS CHECK 0; SAMPLE ICTERIC CHECK 0; SAMPLE LIPEMIA CHECK 0; SODIUM 139 MEQ/L (136-147); UREA NITROGEN (BUN) 48 mg/dL (9-23)
[2017-02-04 17:55] LABS: POINT-OF-CARE METER ID UU14162636
[2017-02-04 22:47] LABS: POINT-OF-CARE METER ID UU14162636
[2017-02-05] VITALS (8 sets, daily range): BP systolic 109–142; BP diastolic 53–122
[2017-02-05 02:31] LABS: POINT-OF-CARE METER ID UU14162636
[2017-02-05 06:27] LABS: POINT-OF-CARE METER ID UU14174217
[2017-02-05 06:38] LABS: HEMATOCRIT 29.1 % (38.0-50.0); MCH 28.8 PG (29.0-34.0); MCHC 31.6 G/DL (30.0-36.0); MCV 91.2 FL (86-99); PLATELET COUNT 272 K/uL (156-360); RBC DIS.WIDTH-CV 16.3 % (11.8-14.6); RBC DIS.WIDTH-SD 54.4 % (39-53); RED BLOOD COUNT 3.19 M/uL (4.00-5.50); WHITE BLOOD COUNT 20.5 K/uL (4.1-10.2)
[2017-02-05 07:15] LABS: ANION GAP 8 MEQ/L (2-14); CHLORIDE 111 MEQ/L (99-109); GFR ESTIMATE (CALCULATED) > 59 mL/min/; MAGNESIUM 1.9 mg/dl (1.3-2.7); POTASSIUM 4.6 MEQ/L (3.7-5.4); SAMPLE HEMOLYSIS CHECK 0; SAMPLE ICTERIC CHECK 0; SAMPLE LIPEMIA CHECK 0; SODIUM 141 MEQ/L (136-147); UREA NITROGEN (BUN) 44 mg/dL (9-23)
[2017-02-05 07:16] LABS: GLUCOSE 99 mg/dL (70-99)
[2017-02-05 10:51] LABS: POINT-OF-CARE METER ID UU14174217
[2017-02-05 14:38] LABS: POINT-OF-CARE METER ID UU14162636
[2017-02-05 17:37] LABS: POINT-OF-CARE METER ID UU14162636
[2017-02-05 23:03] LABS: POINT-OF-CARE METER ID UU14174217; POINT-OF-CARE USER ID RADDRS44
[2017-02-06] VITALS: BP 114/53
[2017-02-06 01:41] LABS: POINT-OF-CARE USER ID RADDRS44
[2017-02-06 04:00] VITALS: BP 124/68
[2017-02-06 05:57] LABS: EOSINOPHIL (%) 0.1 % (0-5); HEMATOCRIT 29.9 % (38.0-50.0); IMMATURE GRANULOCYTE (%) 1.5 % (0.0-0.7); IMMATURE GRANULOCYTE COUNT 0.3 K/uL; INSTRUMENT ABS NEUTROPHIL CT 20.9 K/uL; LYMPHOCYTE COUNT 0.6 K/uL (1.0-2.8); MCH 28.7 PG (29.0-34.0); MCHC 31.4 G/DL (30.0-36.0); MCV 91.4 FL (86-99); MEAN PLAT.VOLUME 9.4 uM^3 (9.0-12.4); MONOCYTE (%) 2.3 % (3-12); MONOCYTE COUNT 0.5 K/uL (0-0.8); NEUTROPHIL (%) 93.1 % (45-76); NEUTROPHIL COUNT 20.9 K/uL (1.8-6.4); PLATELET COUNT 276 K/uL (156-360); RBC DIS.WIDTH-CV 16.6 % (11.8-14.6); RBC DIS.WIDTH-SD 55.7 % (39-53); RED BLOOD COUNT 3.27 M/uL (4.00-5.50); WHITE BLOOD COUNT 22.4 K/uL (4.1-10.2)
[2017-02-06 07:39] LABS: ANION GAP 7 MEQ/L (2-14); CHLORIDE 111 MEQ/L (99-109); MAGNESIUM 1.8 mg/dl (1.3-2.7); POTASSIUM 4.8 MEQ/L (3.7-5.4); SAMPLE HEMOLYSIS CHECK 0; SAMPLE ICTERIC CHECK 0; SAMPLE LIPEMIA CHECK 0; SODIUM 140 MEQ/L (136-147)
[2017-02-06 07:45] LABS: GFR ESTIMATE (CALCULATED) > 59 mL/min/; GLUCOSE 117 mg/dL (70-99); UREA NITROGEN (BUN) 40 mg/dL (9-23)
[2017-02-06 08:00] VITALS: BP 135/76
[2017-02-06 16:00] VITALS: BP 128/58
[2017-02-06 18:27] LABS: POINT-OF-CARE METER ID UU13113731
[2017-02-06 20:00] VITALS: BP 140/72
[2017-02-06 21:54] LABS: POINT-OF-CARE METER ID UU14174217
[2017-02-07] VITALS (12 sets, daily range): BP systolic 106–151; BP diastolic 45–81
[2017-02-07 06:57] LABS: EOSINOPHIL (%) 0 % (0-5); HEMATOCRIT 30.3 % (38.0-50.0); IMMATURE GRANULOCYTE (%) 1.3 % (0.0-0.7); IMMATURE GRANULOCYTE COUNT 0.2 K/uL; INSTRUMENT ABS NEUTROPHIL CT 16.8 K/uL; LYMPHOCYTE COUNT 0.6 K/uL (1.0-2.8); MCH 28.1 PG (29.0-34.0); MCV 90.4 FL (86-99); MEAN PLAT.VOLUME 9.6 uM^3 (9.0-12.4); MONOCYTE (%) 1.9 % (3-12); MONOCYTE COUNT 0.3 K/uL (0-0.8); NEUTROPHIL (%) 93.4 % (45-76); NEUTROPHIL COUNT 16.8 K/uL (1.8-6.4); PLATELET COUNT 284 K/uL (156-360); RBC DIS.WIDTH-CV 16.7 % (11.8-14.6); RBC DIS.WIDTH-SD 54.7 % (39-53); RED BLOOD COUNT 3.35 M/uL (4.00-5.50)
[2017-02-07 07:19] LABS: ANION GAP 6 MEQ/L (2-14); CHLORIDE 111 MEQ/L (99-109); GFR ESTIMATE (CALCULATED) > 59 mL/min/; GLUCOSE 93 mg/dL (70-99); POTASSIUM 4.7 MEQ/L (3.7-5.4); SAMPLE HEMOLYSIS CHECK 0; SAMPLE ICTERIC CHECK 0; SAMPLE LIPEMIA CHECK 0; SODIUM 140 MEQ/L (136-147); UREA NITROGEN (BUN) 34 mg/dL (9-23)
[2017-02-07 12:47] LABS: POINT-OF-CARE METER ID UU14174217
[2017-02-07 17:49] LABS: POINT-OF-CARE METER ID UU14174217
[2017-02-07 21:31] LABS: POINT-OF-CARE METER ID UU13113731
[2017-02-07 22:33] LABS: POINT-OF-CARE METER ID UU13113731
[2017-02-08] VITALS: BP 138/74
[2017-02-08 04:00] VITALS: BP 146/78
[2017-02-08 05:57] LABS: EOSINOPHIL (%) 0 % (0-5); HEMATOCRIT 31.6 % (38.0-50.0); IMMATURE GRANULOCYTE (%) 1.1 % (0.0-0.7); IMMATURE GRANULOCYTE COUNT 0.2 K/uL; INSTRUMENT ABS NEUTROPHIL CT 18.3 K/uL; LYMPHOCYTE COUNT 0.5 K/uL (1.0-2.8); MCH 28.6 PG (29.0-34.0); MCHC 31.3 G/DL (30.0-36.0); MCV 91.3 FL (86-99); MEAN PLAT.VOLUME 9.3 uM^3 (9.0-12.4); MONOCYTE COUNT 0.6 K/uL (0-0.8); NEUTROPHIL (%) 93.4 % (45-76); NEUTROPHIL COUNT 18.3 K/uL (1.8-6.4); PLATELET COUNT 268 K/uL (156-360); RBC DIS.WIDTH-SD 55.6 % (39-53); RED BLOOD COUNT 3.46 M/uL (4.00-5.50); WHITE BLOOD COUNT 19.6 K/uL (4.1-10.2)
[2017-02-08 06:27] LABS: ANION GAP 9 MEQ/L (2-14); CHLORIDE 111 MEQ/L (99-109); GFR ESTIMATE (CALCULATED) > 59 mL/min/; GLUCOSE 115 mg/dL (70-99); POTASSIUM 4.5 MEQ/L (3.7-5.4); SAMPLE HEMOLYSIS CHECK 0; SAMPLE ICTERIC CHECK 0; SAMPLE LIPEMIA CHECK 0; SODIUM 141 MEQ/L (136-147); UREA NITROGEN (BUN) 34 mg/dL (9-23)
[2017-02-08 08:00] VITALS: BP 161/73
[2017-02-08 12:00] VITALS: BP 129/72
[2017-02-08 17:24] LABS: POINT-OF-CARE METER ID UU14174217
[2017-02-08 18:00] VITALS: BP 165/93
[2017-02-08 20:00] VITALS: BP 129/54
[2017-02-09] VITALS (8 sets, daily range): BP systolic 115–144; BP diastolic 51–78
[2017-02-09 06:50] LABS: HEMATOCRIT 33.1 % (38.0-50.0); MCH 28.6 PG (29.0-34.0); MCHC 31.4 G/DL (30.0-36.0); MCV 90.9 FL (86-99); MEAN PLAT.VOLUME 9.7 uM^3 (9.0-12.4); PLATELET COUNT 291 K/uL (156-360); RBC DIS.WIDTH-CV 17.2 % (11.8-14.6); RBC DIS.WIDTH-SD 57.8 % (39-53); RED BLOOD COUNT 3.64 M/uL (4.00-5.50); WHITE BLOOD COUNT 19.5 K/uL (4.1-10.2)
[2017-02-09 07:20] LABS: ANION GAP 9 MEQ/L (2-14); CHLORIDE 111 MEQ/L (99-109); GFR ESTIMATE (CALCULATED) > 59 mL/min/; POTASSIUM 4.2 MEQ/L (3.7-5.4); SAMPLE HEMOLYSIS CHECK 0; SAMPLE ICTERIC CHECK 0; SAMPLE LIPEMIA CHECK 0; SODIUM 142 MEQ/L (136-147); UREA NITROGEN (BUN) 38 mg/dL (9-23)
[2017-02-09 07:26] LABS: GLUCOSE 81 mg/dL (70-99)
[2017-02-09 11:11] LABS: POINT-OF-CARE METER ID UU13113731
[2017-02-09 12:26] LABS: POINT-OF-CARE METER ID UU13113731
[2017-02-09 17:21] LABS: POINT-OF-CARE METER ID UU13113781; POINT-OF-CARE USER ID NUTSLF44
[2017-02-09 20:48] LABS: POINT-OF-CARE METER ID UU13113781
[2017-02-10] VITALS (10 sets, daily range): BP systolic 113–158; BP diastolic 46–88
[2017-02-10 01:32] LABS: POINT-OF-CARE METER ID UU13113781
[2017-02-10 05:49] LABS: HEMATOCRIT 33.3 % (38.0-50.0); MCH 27.9 PG (29.0-34.0); MCHC 30.6 G/DL (30.0-36.0); MCV 91.2 FL (86-99); MEAN PLAT.VOLUME 9.7 uM^3 (9.0-12.4); PLATELET COUNT 257 K/uL (156-360); RBC DIS.WIDTH-CV 17.2 % (11.8-14.6); RBC DIS.WIDTH-SD 57.8 % (39-53); RED BLOOD COUNT 3.65 M/uL (4.00-5.50); WHITE BLOOD COUNT 18.7 K/uL (4.1-10.2)
[2017-02-10 06:19] LABS: ANION GAP 8 MEQ/L (2-14); CHLORIDE 111 MEQ/L (99-109); GFR ESTIMATE (CALCULATED) > 59 mL/min/; POTASSIUM 4.4 MEQ/L (3.7-5.4); SAMPLE HEMOLYSIS CHECK 0; SAMPLE ICTERIC CHECK 0; SAMPLE LIPEMIA CHECK 0; SODIUM 141 MEQ/L (136-147); UREA NITROGEN (BUN) 38 mg/dL (9-23)
[2017-02-10 06:21] LABS: GLUCOSE 165 mg/dL (70-99)
[2017-02-10 08:13] LABS: CARBOXY HGB 2.1 % (0-5); METHEMOGLOBIN 1.7 % (0-1.5)
[2017-02-10 08:14] LABS: COMMENTS - BLOOD GASES +C; DEVICE NC; O2 FLOW 6 L/MIN; PCO2 52 mm Hg (35-45); PO2 70 mm Hg (80-100); SITE RR +A; TOTAL RESP RATE 24 resp/min; pH 7.29 (7.35-7.45)
[2017-02-10 20:51] LABS: POINT-OF-CARE METER ID UU13113698
[2017-02-11 03:15] VITALS: BP 129/64
[2017-02-11 05:55] LABS: HEMATOCRIT 31.8 % (38.0-50.0); MCH 28.5 PG (29.0-34.0); MCHC 30.8 G/DL (30.0-36.0); MCV 92.4 FL (86-99); MEAN PLAT.VOLUME 9.8 uM^3 (9.0-12.4); PLATELET COUNT 210 K/uL (156-360); RBC DIS.WIDTH-CV 17.4 % (11.8-14.6); RED BLOOD COUNT 3.44 M/uL (4.00-5.50); WHITE BLOOD COUNT 18.8 K/uL (4.1-10.2)
[2017-02-11 06:50] LABS: ANION GAP 7 MEQ/L (2-14); CHLORIDE 108 MEQ/L (99-109); GFR ESTIMATE (CALCULATED) > 59 mL/min/; GLUCOSE 169 mg/dL (70-99); POTASSIUM 4.2 MEQ/L (3.7-5.4); SAMPLE HEMOLYSIS CHECK 0; SAMPLE ICTERIC CHECK 0; SAMPLE LIPEMIA CHECK 0; SODIUM 138 MEQ/L (136-147); UREA NITROGEN (BUN) 45 mg/dL (9-23)
[2017-02-11 06:55] LABS: MAGNESIUM 1.5 mg/dl (1.3-2.7)
[2017-02-11 08:48] LABS: POINT-OF-CARE METER ID UU14174216
[2017-02-11 09:50] VITALS: BP 144/80
[2017-02-11 10:55] LABS: POINT-OF-CARE METER ID UU14174216
[2017-02-11 11:00] VITALS: BP 148/68
[2017-02-11 16:00] VITALS: BP 142/68
[2017-02-11 16:28] LABS: POINT-OF-CARE METER ID UU14174216
[2017-02-11 20:30] VITALS: BP 154/67
[2017-02-11 21:12] LABS: POINT-OF-CARE METER ID UU13113781
[2017-02-11 23:30] VITALS: BP 142/89
[2017-02-12 03:30] VITALS: BP 127/70
[2017-02-12 05:48] LABS: HEMATOCRIT 31.5 % (38.0-50.0); MCH 28.9 PG (29.0-34.0); MCHC 31.4 G/DL (30.0-36.0); MCV 91.8 FL (86-99); MEAN PLAT.VOLUME 9.9 uM^3 (9.0-12.4); PLATELET COUNT 176 K/uL (156-360); RBC DIS.WIDTH-CV 17.4 % (11.8-14.6); RBC DIS.WIDTH-SD 58.5 % (39-53); RED BLOOD COUNT 3.43 M/uL (4.00-5.50); WHITE BLOOD COUNT 16.8 K/uL (4.1-10.2)
[2017-02-12 06:14] LABS: ANION GAP 6 MEQ/L (2-14); CHLORIDE 110 MEQ/L (99-109); GFR ESTIMATE (CALCULATED) > 59 mL/min/; GLUCOSE 152 mg/dL (70-99); MAGNESIUM 1.7 mg/dl (1.3-2.7); POTASSIUM 3.9 MEQ/L (3.7-5.4); SAMPLE HEMOLYSIS CHECK 0; SAMPLE ICTERIC CHECK 0; SAMPLE LIPEMIA CHECK 0; SODIUM 141 MEQ/L (136-147); UREA NITROGEN (BUN) 41 mg/dL (9-23)
[2017-02-12 08:22] LABS: POINT-OF-CARE METER ID UU13113698
[2017-02-12 09:00] VITALS: BP 146/50
[2017-02-12 09:20] LABS: POINT-OF-CARE METER ID UU13113698
[2017-02-12 12:17] VITALS: BP 156/80
[2017-02-12 12:45] LABS: POINT-OF-CARE METER ID UU13113698
[2017-02-12 17:24] LABS: POINT-OF-CARE METER ID UU13113781
[2017-02-12 17:36] VITALS: BP 153/73
[2017-02-12 19:00] VITALS: BP 139/72
[2017-02-12 21:01] LABS: POINT-OF-CARE METER ID UU13113781
[2017-02-12 23:30] VITALS: BP 143/60
[2017-02-13 03:15] VITALS: BP 142/71
[2017-02-13 07:48] LABS: HEMATOCRIT 31.9 % (38.0-50.0); MCV 90.4 FL (86-99); MEAN PLAT.VOLUME 10.2 uM^3 (9.0-12.4); PLATELET COUNT 171 K/uL (156-360); RBC DIS.WIDTH-CV 17.2 % (11.8-14.6); RBC DIS.WIDTH-SD 57.1 % (39-53); RED BLOOD COUNT 3.53 M/uL (4.00-5.50); WHITE BLOOD COUNT 17.4 K/uL (4.1-10.2)
[2017-02-13 07:58] LABS: POINT-OF-CARE METER ID UU14174216
[2017-02-13 08:29] LABS: ANION GAP 5 MEQ/L (2-14); CHLORIDE 108 MEQ/L (99-109); GFR ESTIMATE (CALCULATED) > 59 mL/min/; GLUCOSE 67 mg/dL (70-99); MAGNESIUM 1.6 mg/dl (1.3-2.7); POTASSIUM 3.8 MEQ/L (3.7-5.4); SAMPLE HEMOLYSIS CHECK 0; SAMPLE ICTERIC CHECK 0; SAMPLE LIPEMIA CHECK 0; SODIUM 140 MEQ/L (136-147); UREA NITROGEN (BUN) 44 mg/dL (9-23)
[2017-02-13 11:46] LABS: POINT-OF-CARE METER ID UU14174216
[2017-02-13 15:29] VITALS: BP 122/66
[2017-02-13 19:54] VITALS: BP 130/72
[2017-02-13 23:36] VITALS: BP 128/64
[2017-02-14 03:39] VITALS: BP 136/65
[2017-02-14 06:32] LABS: POINT-OF-CARE METER ID UU14174216
[2017-02-14 09:22] LABS: HEMATOCRIT 33.4 % (38.0-50.0); MCH 28.9 PG (29.0-34.0); MCHC 31.4 G/DL (30.0-36.0); MEAN PLAT.VOLUME 10.4 uM^3 (9.0-12.4); PLATELET COUNT 150 K/uL (156-360); RBC DIS.WIDTH-CV 17.5 % (11.8-14.6); RBC DIS.WIDTH-SD 58.7 % (39-53); RED BLOOD COUNT 3.63 M/uL (4.00-5.50); WHITE BLOOD COUNT 14.5 K/uL (4.1-10.2)
[2017-02-14 09:30] VITALS: BP 112/60
[2017-02-14 09:47] LABS: ANION GAP 6 MEQ/L (2-14); CHLORIDE 106 MEQ/L (99-109); GFR ESTIMATE (CALCULATED) > 59 mL/min/; POTASSIUM 4.1 MEQ/L (3.7-5.4); SAMPLE HEMOLYSIS CHECK 0; SAMPLE ICTERIC CHECK 0; SAMPLE LIPEMIA CHECK 0; SODIUM 141 MEQ/L (136-147); UREA NITROGEN (BUN) 46 mg/dL (9-23)
[2017-02-14 09:48] LABS: GLUCOSE 204 mg/dL (70-99)
[2017-02-14 11:43] LABS: POINT-OF-CARE METER ID UU13113698
[2017-02-14 14:58] LABS: POINT-OF-CARE METER ID UU13113698
[2017-02-14 17:04] VITALS: BP 150/64
[2017-02-14 18:54] LABS: POINT-OF-CARE USER ID ADMSLT55
[2017-02-14 20:44] VITALS: BP 140/76
[2017-02-14 20:49] LABS: POINT-OF-CARE METER ID UU13113698
[2017-02-15] VITALS (7 sets, daily range): BP systolic 128–151; BP diastolic 56–74
[2017-02-15 05:37] LABS: ANION GAP 7 MEQ/L (2-14); CHLORIDE 106 MEQ/L (99-109); GFR ESTIMATE (CALCULATED) > 59 mL/min/; GLUCOSE 263 mg/dL (70-99); MAGNESIUM 1.9 mg/dl (1.3-2.7); POTASSIUM 4.4 MEQ/L (3.7-5.4); SAMPLE HEMOLYSIS CHECK 0; SAMPLE ICTERIC CHECK 0; SAMPLE LIPEMIA CHECK 0; SODIUM 138 MEQ/L (136-147); UREA NITROGEN (BUN) 44 mg/dL (9-23)
[2017-02-15 05:55] LABS: HEMATOCRIT 33.4 % (38.0-50.0); MCH 28.1 PG (29.0-34.0); MCHC 30.8 G/DL (30.0-36.0); MCV 91.3 FL (86-99); MEAN PLAT.VOLUME 10.6 uM^3 (9.0-12.4); PLATELET COUNT 139 K/uL (156-360); RBC DIS.WIDTH-CV 17.3 % (11.8-14.6); RBC DIS.WIDTH-SD 57.6 % (39-53); RED BLOOD COUNT 3.66 M/uL (4.00-5.50); WHITE BLOOD COUNT 13.8 K/uL (4.1-10.2)
[2017-02-15 08:02] LABS: POINT-OF-CARE METER ID UU14174216; POINT-OF-CARE USER ID ENVKC36
[2017-02-15 11:49] LABS: POINT-OF-CARE USER ID ENVKC36
[2017-02-15 16:36] LABS: POINT-OF-CARE USER ID ENVKC36
[2017-02-15 21:13] LABS: POINT-OF-CARE METER ID UU13113781
[2017-02-16 00:45] VITALS: BP 128/56
[2017-02-16 04:29] VITALS: BP 110/64
[2017-02-16 08:27] LABS: POINT-OF-CARE METER ID UU13113781; POINT-OF-CARE USER ID ENVKC36
[2017-02-16 08:57] VITALS: BP 141/74
[2017-02-16 11:56] LABS: POINT-OF-CARE USER ID ENVKC36
[2017-02-16 12:18] VITALS: BP 129/60
[2017-02-16 17:09] LABS: POINT-OF-CARE METER ID UU13113698
[2017-02-16 17:18] VITALS: BP 147/71
[2017-02-16 20:22] LABS: POINT-OF-CARE METER ID UU13113698
[2017-02-16 20:33] VITALS: BP 136/68
[2017-02-17 00:42] VITALS: BP 122/68
[2017-02-17 05:19] VITALS: BP 118/62
[2017-02-17 05:55] LABS: EOSINOPHIL (%) 0 % (0-5); HEMATOCRIT 32.4 % (38.0-50.0); IMMATURE GRANULOCYTE (%) 0.7 % (0.0-0.7); IMMATURE GRANULOCYTE COUNT 0.1 K/uL; INSTRUMENT ABS NEUTROPHIL CT 15.2 K/uL; LYMPHOCYTE COUNT 0.4 K/uL (1.0-2.8); MCH 28.2 PG (29.0-34.0); MCHC 30.9 G/DL (30.0-36.0); MCV 91.5 FL (86-99); MEAN PLAT.VOLUME 10.4 uM^3 (9.0-12.4); MONOCYTE (%) 6.5 % (3-12); MONOCYTE COUNT 1.1 K/uL (0-0.8); NEUTROPHIL (%) 90.3 % (45-76); NEUTROPHIL COUNT 15.2 K/uL (1.8-6.4); PLATELET COUNT 110 K/uL (156-360); RBC DIS.WIDTH-CV 17.4 % (11.8-14.6); RBC DIS.WIDTH-SD 59.1 % (39-53); RED BLOOD COUNT 3.54 M/uL (4.00-5.50); WHITE BLOOD COUNT 16.8 K/uL (4.1-10.2)
[2017-02-17 06:26] LABS: ALKALINE PHOSPHATASE 458 IU/L (3-129); ANION GAP 9 MEQ/L (2-14); CHLORIDE 106 MEQ/L (99-109); GFR ESTIMATE (CALCULATED) > 59 mL/min/; GLUCOSE 153 mg/dL (70-99); POTASSIUM 3.6 MEQ/L (3.7-5.4); SAMPLE HEMOLYSIS CHECK 0; SAMPLE ICTERIC CHECK 0; SAMPLE LIPEMIA CHECK 0; SODIUM 141 MEQ/L (136-147); TOTAL BILIRUBIN 0.4 MG/DL (0.0-1.0); UREA NITROGEN (BUN) 48 mg/dL (9-23)
[2017-02-17 06:46] LABS: VANCOMYCIN, TROUGH 17.7 MCG/ML (10-20)
[2017-02-17 07:59] LABS: POINT-OF-CARE METER ID UU13113781
[2017-02-17 09:00] VITALS: BP 140/67
[2017-02-17 11:52] LABS: POINT-OF-CARE METER ID UU14174216
[2017-02-17 13:16] VITALS: BP 125/65
[2017-02-17 16:55] LABS: POINT-OF-CARE METER ID UU14174216
[2017-02-17 17:59] VITALS: BP 143/63
[2017-02-17 19:15] VITALS: BP 138/80
[2017-02-18 00:10] VITALS: BP 124/81
[2017-02-18 04:00] VITALS: BP 146/72
[2017-02-18 06:27] LABS: EOSINOPHIL (%) 0 % (0-5); HEMATOCRIT 31.8 % (38.0-50.0); IMMATURE GRANULOCYTE (%) 0.6 % (0.0-0.7); IMMATURE GRANULOCYTE COUNT 0.1 K/uL; INSTRUMENT ABS NEUTROPHIL CT 14.3 K/uL; LYMPHOCYTE COUNT 0.4 K/uL (1.0-2.8); MCH 29.2 PG (29.0-34.0); MCHC 31.8 G/DL (30.0-36.0); MCV 91.9 FL (86-99); MEAN PLAT.VOLUME 10.9 uM^3 (9.0-12.4); MONOCYTE (%) 5.8 % (3-12); MONOCYTE COUNT 0.9 K/uL (0-0.8); NEUTROPHIL (%) 91.1 % (45-76); NEUTROPHIL COUNT 14.3 K/uL (1.8-6.4); PLATELET COUNT 109 K/uL (156-360); RBC DIS.WIDTH-CV 17.7 % (11.8-14.6); RBC DIS.WIDTH-SD 59.5 % (39-53); RED BLOOD COUNT 3.46 M/uL (4.00-5.50); WHITE BLOOD COUNT 15.7 K/uL (4.1-10.2)
[2017-02-18 07:00] LABS: ALKALINE PHOSPHATASE 392 IU/L (3-129); ANION GAP 8 MEQ/L (2-14); CHLORIDE 107 MEQ/L (99-109); GFR ESTIMATE (CALCULATED) > 59 mL/min/; GLUCOSE 214 mg/dL (70-99); POTASSIUM 4.3 MEQ/L (3.7-5.4); SAMPLE HEMOLYSIS CHECK 0; SAMPLE ICTERIC CHECK 0; SAMPLE LIPEMIA CHECK 0; SODIUM 142 MEQ/L (136-147); TOTAL BILIRUBIN 0.3 MG/DL (0.0-1.0); UREA NITROGEN (BUN) 51 mg/dL (9-23)
[2017-02-18 07:30] VITALS: BP 157/80
[2017-02-18 07:37] LABS: POINT-OF-CARE METER ID UU13113698
[2017-02-18 11:18] LABS: HPCA INDEX 0.14
[2017-02-18 11:19] LABS: ANTI-HEPATITIS A VIRUS (IGM) Nonreactive; ANTI-HEPATITIS B CORE (IGM) Nonreactive; HAV INDEX 0.11; HBC IgM INDEX 0.06
[2017-02-18 11:40] LABS: POINT-OF-CARE METER ID UU13113698
[2017-02-18 12:01] VITALS: BP 113/84
[2017-02-18 16:00] VITALS: BP 167/77
[2017-02-18 16:24] LABS: POINT-OF-CARE METER ID UU13113698
[2017-02-18 19:20] VITALS: BP 135/68
[2017-02-18 20:49] LABS: POINT-OF-CARE METER ID UU14174216
[2017-02-19 00:20] VITALS: BP 132/72
[2017-02-19 04:19] VITALS: BP 136/70
[2017-02-19 05:57] LABS: EOSINOPHIL (%) 0 % (0-5); HEMATOCRIT 31.2 % (38.0-50.0); IMMATURE GRANULOCYTE (%) 0.6 % (0.0-0.7); IMMATURE GRANULOCYTE COUNT 0.1 K/uL; INSTRUMENT ABS NEUTROPHIL CT 13.4 K/uL; LYMPHOCYTE COUNT 0.4 K/uL (1.0-2.8); MCH 27.8 PG (29.0-34.0); MCHC 30.4 G/DL (30.0-36.0); MCV 91.2 FL (86-99); MEAN PLAT.VOLUME 10.1 uM^3 (9.0-12.4); MONOCYTE (%) 5.1 % (3-12); MONOCYTE COUNT 0.8 K/uL (0-0.8); NEUTROPHIL (%) 91.6 % (45-76); NEUTROPHIL COUNT 13.4 K/uL (1.8-6.4); PLATELET COUNT 117 K/uL (156-360); RBC DIS.WIDTH-CV 17.3 % (11.8-14.6); RBC DIS.WIDTH-SD 58.1 % (39-53); RED BLOOD COUNT 3.42 M/uL (4.00-5.50); WHITE BLOOD COUNT 14.6 K/uL (4.1-10.2)
[2017-02-19 06:22] LABS: ALKALINE PHOSPHATASE 369 IU/L (3-129); ANION GAP 7 MEQ/L (2-14); CHLORIDE 104 MEQ/L (99-109); GFR ESTIMATE (CALCULATED) > 59 mL/min/; GLUCOSE 239 mg/dL (70-99); POTASSIUM 4.2 MEQ/L (3.7-5.4); SAMPLE HEMOLYSIS CHECK 0; SAMPLE ICTERIC CHECK 0; SAMPLE LIPEMIA CHECK 0; SODIUM 139 MEQ/L (136-147); TOTAL BILIRUBIN 0.3 MG/DL (0.0-1.0); UREA NITROGEN (BUN) 53 mg/dL (9-23)
[2017-02-19 09:11] VITALS: BP 122/68
[2017-02-19 11:47] VITALS: BP 110/72
[2017-02-19 12:20] LABS: POINT-OF-CARE METER ID UU14174216; POINT-OF-CARE USER ID ENVKC36
[2017-02-19 16:45] VITALS: BP 132/74
[2017-02-19 19:54] VITALS: BP 142/64
[2017-02-19 21:33] LABS: POINT-OF-CARE METER ID UU14174216
[2017-02-20 00:26] VITALS: BP 124/62
[2017-02-20 03:12] VITALS: BP 126/62
[2017-02-20 07:56] LABS: POINT-OF-CARE METER ID UU13113781
[2017-02-20 08:35] VITALS: BP 130/80
[2017-02-20 09:03] LABS: EOSINOPHIL (%) 0 % (0-5); HEMATOCRIT 31.5 % (38.0-50.0); IMMATURE GRANULOCYTE (%) 0.6 % (0.0-0.7); IMMATURE GRANULOCYTE COUNT 0.1 K/uL; INSTRUMENT ABS NEUTROPHIL CT 15.2 K/uL; LYMPHOCYTE COUNT 0.5 K/uL (1.0-2.8); MCH 29.5 PG (29.0-34.0); MCHC 32.1 G/DL (30.0-36.0); MCV 92.1 FL (86-99); MEAN PLAT.VOLUME 10.1 uM^3 (9.0-12.4); MONOCYTE COUNT 0.8 K/uL (0-0.8); NEUTROPHIL (%) 91.5 % (45-76); NEUTROPHIL COUNT 15.2 K/uL (1.8-6.4); PLATELET COUNT 129 K/uL (156-360); RBC DIS.WIDTH-CV 17.2 % (11.8-14.6); RBC DIS.WIDTH-SD 58.3 % (39-53); RED BLOOD COUNT 3.42 M/uL (4.00-5.50); WHITE BLOOD COUNT 16.6 K/uL (4.1-10.2)
[2017-02-20 09:29] LABS: ALKALINE PHOSPHATASE 404 IU/L (3-129); ANION GAP 7 MEQ/L (2-14); CHLORIDE 106 MEQ/L (99-109); GFR ESTIMATE (CALCULATED) > 59 mL/min/; GLUCOSE 201 mg/dL (70-99); POTASSIUM 4.3 MEQ/L (3.7-5.4); SAMPLE HEMOLYSIS CHECK 0; SAMPLE ICTERIC CHECK 0; SAMPLE LIPEMIA CHECK 0; SODIUM 141 MEQ/L (136-147); TOTAL BILIRUBIN 0.3 MG/DL (0.0-1.0); UREA NITROGEN (BUN) 57 mg/dL (9-23)
[2017-02-20 11:33] LABS: POINT-OF-CARE METER ID UU13113781
[2017-02-20 11:46] VITALS: BP 122/84
[2017-02-20 16:00] VITALS: BP 112/68
[2017-02-20 16:12] LABS: POINT-OF-CARE METER ID UU14174216
[2017-02-20 19:20] VITALS: BP 140/72
[2017-02-20 21:19] LABS: POINT-OF-CARE METER ID UU13113698
[2017-02-21] VITALS (7 sets, daily range): BP systolic 129–152; BP diastolic 62–78
[2017-02-21 07:18] LABS: VANCOMYCIN, TROUGH 16.2 MCG/ML (10-20)
[2017-02-21 09:21] LABS: EOSINOPHIL (%) 0 % (0-5); HEMATOCRIT 32.7 % (38.0-50.0); IMMATURE GRANULOCYTE (%) 0.7 % (0.0-0.7); IMMATURE GRANULOCYTE COUNT 0.1 K/uL; INSTRUMENT ABS NEUTROPHIL CT 15.4 K/uL; LYMPHOCYTE COUNT 0.3 K/uL (1.0-2.8); MCH 29.1 PG (29.0-34.0); MCHC 31.2 G/DL (30.0-36.0); MCV 93.2 FL (86-99); MEAN PLAT.VOLUME 10.6 uM^3 (9.0-12.4); MONOCYTE (%) 4.8 % (3-12); MONOCYTE COUNT 0.8 K/uL (0-0.8); NEUTROPHIL (%) 92.4 % (45-76); NEUTROPHIL COUNT 15.4 K/uL (1.8-6.4); PLATELET COUNT 142 K/uL (156-360); RBC DIS.WIDTH-CV 17.2 % (11.8-14.6); RBC DIS.WIDTH-SD 59.1 % (39-53); RED BLOOD COUNT 3.51 M/uL (4.00-5.50); WHITE BLOOD COUNT 16.6 K/uL (4.1-10.2)
[2017-02-21 09:39] LABS: POINT-OF-CARE METER ID UU14174225
[2017-02-21 10:45] LABS: ALKALINE PHOSPHATASE 437 IU/L (3-129); ANION GAP 12 MEQ/L (2-14); CHLORIDE 105 MEQ/L (99-109); DIRECT BILIRUBIN 0.1 mg/dL (0.0-0.3); GFR ESTIMATE (CALCULATED) > 59 mL/min/; POTASSIUM 4.7 MEQ/L (3.7-5.4); SODIUM 139 MEQ/L (136-147); TOTAL BILIRUBIN 0.3 MG/DL (0.0-1.0); UREA NITROGEN (BUN) 58 mg/dL (9-23)
[2017-02-21 10:46] LABS: GLUCOSE 306 mg/dL (70-99)
[2017-02-21 17:27] LABS: POINT-OF-CARE METER ID UU14174225
[2017-02-21 21:40] LABS: POINT-OF-CARE METER ID UU14174225
[2017-02-22 04:00] VITALS: BP 147/70
[2017-02-22 07:05] LABS: IRON 53 MCG/DL (35-150)
[2017-02-22 07:51] LABS: FERRITIN 684 NG/ML (22-322)
[2017-02-22 08:10] VITALS: BP 126/67
[2017-02-22 09:13] LABS: ALKALINE PHOSPHATASE 390 IU/L (3-129); ANION GAP 6 MEQ/L (2-14); CHLORIDE 106 MEQ/L (99-109); GFR ESTIMATE (CALCULATED) > 59 mL/min/; GLUCOSE 201 mg/dL (70-99); POTASSIUM 4.3 MEQ/L (3.7-5.4); SODIUM 141 MEQ/L (136-147); TOTAL BILIRUBIN 0.3 MG/DL (0.0-1.0); UREA NITROGEN (BUN) 57 mg/dL (9-23)
[2017-02-22 11:39] VITALS: BP 141/79
[2017-02-22 11:57] LABS: POINT-OF-CARE METER ID UU14174225
[2017-02-22] MEDS ORDERED: HUMULIN R100 UNITS/ SC (14:48)
[2017-02-22] MEDS ORDERED: SPIRIVA RESPIMAT4 GM IH (14:48)
[2017-02-22] MEDS ORDERED: LEVAQUIN750 MG PO (14:48)
[2017-02-22] MEDS ORDERED: DECADRON4 MG PO (14:55)
[2017-02-22] MEDS ORDERED: LO-DOSE ASPIRIN81 M2 PO (14:55)
[2017-02-22] MEDS ORDERED: BUMEX1 MG PO (14:55)
[2017-02-22 15:16] VITALS: BP 148/76
[2017-02-22 16:33] LABS: POINT-OF-CARE METER ID UU14174225
[2017-02-23 10:43] LABS: ALPHA-1-ANTITRYPSIN+ 109 mg/dL (83-199)
[2017-02-23 18:02] LABS: MITOCHONDRIAL (M2) ANTIBODIES+ <=20.0 U (<=20.0)
== END 2017-02-22 19:15 | disposition home health service (06) | DRG 981 ==
LOC: EME 20:32 → 4EAST 01-27 04:23 → 4WEST 01-27 04:23 → 5SOUTH 01-27 04:23 → EDOF 01-27 04:23 → 5SOUTH 01-27 16:19 → 4EAST 01-29 14:41 → 4WEST 01-30 21:52 → 4EAST 02-09 13:36 → 5SOUTH 02-21 01:17
PROVIDERS: Emergency Medicine; Hospitalist; Internal Medicine; Internal Medicine Critical Care Medicine; Internal Medicine Gastroenterology; Internal Medicine Nephrology; Internal Medicine Pulmonary Disease; Nurse Practitioner Adult Health; Physician Assistant Medical; Student in an Organized Health Care Education/Training Program
DX: I63.9 Cerebral infarction, unspecified (principal); J44.0 Chronic obstructive pulmonary disease with (acute) lower respiratory infection; I50.43 Acute on chronic combined systolic (congestive) and diastolic (congestive) heart failure; J15.212 Pneumonia due to Methicillin resistant Staphylococcus aureus; N30.01 Acute cystitis with hematuria; N13.6 Pyonephrosis; N17.1 Acute kidney failure with acute cortical necrosis; E11.22 Type 2 diabetes mellitus with diabetic chronic kidney disease; I13.0 Hypertensive heart and chronic kidney disease with heart failure and stage 1 through stage 4 chronic kidney disease, or unspecified chronic kidney disease; E87.5 Hyperkalemia; Z79.4 Long term (current) use of insulin; Z86.73 Personal history of transient ischemic attack (TIA), and cerebral infarction without residual deficits; I46.9 Cardiac arrest, cause unspecified; I48.0 Paroxysmal atrial fibrillation; N18.3 Chronic kidney disease, stage 3 (moderate); Z87.440 Personal history of urinary (tract) infections; E66.9 Obesity, unspecified; J45.901 Unspecified asthma with (acute) exacerbation; Z68.36 Body mass index [BMI] 36.0-36.9, adult; N31.9 Neuromuscular dysfunction of bladder, unspecified; J98.11 Atelectasis; Z87.891 Personal history of nicotine dependence; L89.303 Pressure ulcer of unspecified buttock, stage 3; L89.304 Pressure ulcer of unspecified buttock, stage 4; L89.153 Pressure ulcer of sacral region, stage 3; R33.9 Retention of urine, unspecified; R32 Unspecified urinary incontinence; E11.41 Type 2 diabetes mellitus with diabetic mononeuropathy; J98.09 Other diseases of bronchus, not elsewhere classified; I48.2 Chronic atrial fibrillation; Z86.718 Personal history of other venous thrombosis and embolism; G82.50 Quadriplegia, unspecified; E87.6 Hypokalemia; E11.65 Type 2 diabetes mellitus with hyperglycemia; J96.01 Acute respiratory failure with hypoxia; R47.1 Dysarthria and anarthria; M48.02 Spinal stenosis, cervical region; K74.60 Unspecified cirrhosis of liver; K75.81 Nonalcoholic steatohepatitis (NASH); D63.8 Anemia in other chronic diseases classified elsewhere; M21.331 Wrist drop, right wrist
CPT/HCPCS: 31720; 36600; 70450; 70551; 71010; 71020; 71250; 72141; 72148; 74176; 74181; 74230; 76705; 80048; 80048 91; 80053; 80061; 80069; 80074; 80076; 80202; 81003; 82103 90; 82272; 82390; 82728; 82803; 82945; 82948; 83036; 83540; 83605; 83615 91; 83690; 83735; 83986 90; 84100; 84157; 84466; 84484; 84999; 85025; 85027; 85610; 85730; 86038; 86256 90; 87040; 87070; 87075; 87077; 87086; 87116; 87147; 87186; 87205; 87206; 87641; 88108; 88305; 89051; 92526 GN; 92611 GN; 93005; 93880; 94002; 94003; 94010; 94640; 94640 76; 94667; 94668; 94760; 94799; 97530 GO; 97530 GP; 99202; 99281; 99285; C1729; J0456; J0610; J0692; J1650; J1815; J1940; J1956; J2250; J2405; J2543; J2704; J2920; J2930; J3010; J3370; J3475; J7030; J7050; J7120; J7608; J8540; P9047

== ENCOUNTER 2017-02-23 02:22 | Emergency (ER) | payer OTHER, MEDICARE ==
[~2017-02-23] VITALS: Ht 180.3 cm; Wt 117.5 kg
[~2017-02-23 02:22] MED LIST changes: +ATORVASTATIN CA40 MG PO; +BUMEX1 MG PO; +DECADRON4 MG PO; +HUMULIN R100 UNITS/ SC; +LEVAQUIN750 MG PO; +LO-DOSE ASPIRIN81 M2 PO; +SPIRIVA RESPIMAT4 GM IH; +TOUJEO SOL300 UNIT/1 SC; +TRESIBA FL100 UNIT/1 SC
[2017-02-23 03:06] LABS: EOSINOPHIL (%) 0 % (0-5); HEMATOCRIT 31.8 % (38.0-50.0); IMMATURE GRANULOCYTE (%) 0.8 % (0.0-0.7); IMMATURE GRANULOCYTE COUNT 0.2 K/uL; INSTRUMENT ABS NEUTROPHIL CT 17.6 K/uL; LYMPHOCYTE COUNT 0.3 K/uL (1.0-2.8); MCH 28.8 PG (29.0-34.0); MCHC 32.1 G/DL (30.0-36.0); MCV 89.8 FL (86-99); MEAN PLAT.VOLUME 9.4 uM^3 (9.0-12.4); MONOCYTE (%) 4.1 % (3-12); MONOCYTE COUNT 0.8 K/uL (0-0.8); NEUTROPHIL (%) 93.6 % (45-76); NEUTROPHIL COUNT 17.6 K/uL (1.8-6.4); PLATELET COUNT 171 K/uL (156-360); RBC DIS.WIDTH-CV 17.2 % (11.8-14.6); RBC DIS.WIDTH-SD 57.3 % (39-53); RED BLOOD COUNT 3.54 M/uL (4.00-5.50); WHITE BLOOD COUNT 18.9 K/uL (4.1-10.2)
[2017-02-23 03:18] LABS: CHLORIDE 105 mEq/L (99-109); POTASSIUM 4.8 mEq/L (3.7-5.4); SODIUM 137 mEq/L (136-147)
[2017-02-23 03:19] LABS: GLUCOSE 271 mg/dL (70-99)
[2017-02-23 03:20] LABS: PTT 24.9 (25-32)
[2017-02-23 03:21] LABS: ANION GAP 8 MEQ/L (2-14)
[2017-02-23 03:23] LABS: GFR ESTIMATE (CALCULATED) > 59 mL/min/
[2017-02-23 03:24] LABS: UREA NITROGEN (BUN) 64 mg/dL (9-23)
[2017-02-23 04:01] LABS: ADD MIUA? YES; BILIRUBIN NEGATIVE; BLOOD LARGE; COLOR YELLOW ((YELLOW)); GLUCOSE (STRIP) 50; KETONES NEGATIVE; LEUKOCYTES LARGE; NITRITE NEGATIVE; PROTEIN (STRIP) >=500; UROBILINOGEN 0.2 MG/DL (0.2-1.0)
[2017-02-23 04:33] LABS: EPITHELIAL CELLS NONE SEEN /HPF; MUCUS NONE SEEN /LPF; RED BLOOD CELLS TNTC /HPF (0-5); WHITE BLOOD CELLS TNTC /HPF (0-5)
[2017-02-23 04:34] LABS: BACTERIA 2+ /HPF; UCUL ADDED? YES
[2017-02-23 06:36] VITALS: BP 119/79
== END 2017-02-23 06:36 | disposition home or self-care (01) ==
LOC: EME 02:22
PROVIDERS: Emergency Medicine
PROC: 0T9B70Z Drainage of Bladder with Drainage Device, Via Natural or Artificial Opening (ICD-10-PCS; principal; 2017-02-23)
DX: R31.9 Hematuria, unspecified (principal); Z46.6 Encounter for fitting and adjustment of urinary device; I10 Essential (primary) hypertension; E11.9 Type 2 diabetes mellitus without complications; J44.9 Chronic obstructive pulmonary disease, unspecified; Z86.73 Personal history of transient ischemic attack (TIA), and cerebral infarction without residual deficits; Z87.891 Personal history of nicotine dependence
CPT/HCPCS: 80048; 81003; 85025; 85610; 85730; 86900; 86901; 87086; 99281; 99285

== ENCOUNTER 2017-02-28 08:51 | Inpatient (IN) | payer OTHER, MEDICARE ==
[2017-02-28] VITALS (9 sets, daily range): BP systolic 84–131; BP diastolic 59–72
[~2017-02-28] VITALS: Ht 180.3 cm; Wt 104.1 kg
[2017-02-28 10:20] LABS: ADD MIUA? YES; BILIRUBIN NEGATIVE; BLOOD MODERATE; COLOR AMBER ((YELLOW)); GLUCOSE (STRIP) 50; KETONES NEGATIVE; LEUKOCYTES LARGE; NITRITE NEGATIVE; PROTEIN (STRIP) >=500; SPECIFIC GRAVITY 1.014 (1.000-1.030); UROBILINOGEN 0.2 MG/DL (0.2-1.0)
[2017-02-28 10:33] LABS: BACTERIA RARE /HPF; BUDDING YEAST 4+; EPITHELIAL CELLS NONE SEEN /HPF; MUCUS NONE SEEN /LPF; RED BLOOD CELLS TNTC /HPF (0-5); UCUL ADDED? YES; UNCLASSIFIED CRYSTALS 2+ /HPF; WHITE BLOOD CELLS TNTC /HPF (0-5); WHITE BLOOD CELLS CLUMP MANY /HPF (0-5)
[2017-02-28 10:37] LABS: EOSINOPHIL (%) 0 % (0-5); HEMATOCRIT 37.6 % (38.0-50.0); IMMATURE GRANULOCYTE (%) 0.4 % (0.0-0.7); IMMATURE GRANULOCYTE COUNT 0.1 K/uL; INSTRUMENT ABS NEUTROPHIL CT 11.9 K/uL; LYMPHOCYTE COUNT 0.3 K/uL (1.0-2.8); MCH 28.7 PG (29.0-34.0); MCHC 31.1 G/DL (30.0-36.0); MCV 92.2 FL (86-99); MEAN PLAT.VOLUME 9.2 uM^3 (9.0-12.4); MONOCYTE (%) 8.4 % (3-12); MONOCYTE COUNT 1.1 K/uL (0-0.8); NEUTROPHIL (%) 88.9 % (45-76); NEUTROPHIL COUNT 11.9 K/uL (1.8-6.4); PLATELET COUNT 190 K/uL (156-360); RBC DIS.WIDTH-CV 16.7 % (11.8-14.6); RBC DIS.WIDTH-SD 56.6 % (39-53); RED BLOOD COUNT 4.08 M/uL (4.00-5.50); WHITE BLOOD COUNT 13.3 K/uL (4.1-10.2)
[2017-02-28 10:58] LABS: TROP-I INTERPRETATION NEGATIVE; TROPONIN-I 0.06 ng/mL (0.0-0.30)
[2017-02-28 11:11] LABS: CHLORIDE 103 mEq/L (99-109); POTASSIUM 4.3 mEq/L (3.7-5.4); SODIUM 138 mEq/L (136-147)
[2017-02-28 11:13] LABS: GLUCOSE 254 mg/dL (70-99)
[2017-02-28 11:14] LABS: ANION GAP 9 MEQ/L (2-14)
[2017-02-28 11:15] LABS: TOTAL BILIRUBIN 0.4 mg/dL (0.0-1.0)
[2017-02-28 11:16] LABS: ALKALINE PHOSPHATASE 250 IU/L (3-129)
[2017-02-28 11:17] LABS: GFR ESTIMATE (CALCULATED) > 59 mL/min/
[2017-02-28 11:18] LABS: UREA NITROGEN (BUN) 64 mg/dL (9-23)
[2017-02-28 15:41] LABS: BASE EXCESS 1.3 mEq/L (-3 to +3); BICARBONATE 26.6 mEq/L (22-26); CARBOXY HGB 2.2 % (0-5); COMMENTS - BLOOD GASES C+; METHEMOGLOBIN 1.8 % (0-1.5); PCO2 44 mm Hg (35-45); PO2 52 mm Hg (80-100); SITE RR; pH 7.39 (7.35-7.45)
[2017-02-28 15:42] LABS: DEVICE NRBM; FI02 100 %; O2 FLOW 15 L/MIN; TOTAL RESP RATE 20 resp/min
[2017-02-28 15:57] LABS: MAGNESIUM 1.7 mg/dL (1.3-2.7)
[2017-02-28 16:30] LABS: URIC ACID 9.9 mg/dL (3.1-9.2)
[2017-02-28 16:33] LABS: C3 COMPLEMENT 95 MG/DL (58-170); C4 COMPLEMENT 15 MG/DL (10-40)
[2017-02-28 16:37] LABS: C-REACTIVE PROTEIN 5.5 MG/L (0-10)
[2017-02-28 16:42] LABS: METH RESISTANT S AUREUS PCR POSITIVE (NEGATIVE)
[2017-02-28 16:48] LABS: PROBE CHECK PASS
[2017-02-28 16:55] LABS: Estimated Average Glucose 160 mg/dL (70-123); HEMOGLOBIN A1c (GLYCOHEMOGLOB) 7.2 % HGB (Below 5.7)
[2017-02-28 20:20] LABS: BASE EXCESS 1.3 mEq/L (-3 to +3); BICARBONATE 26.6 mEq/L (22-26); CARBOXY HGB 2.5 % (0-5); METHEMOGLOBIN 1.6 % (0-1.5); PCO2 44 mm Hg (35-45); pH 7.39 (7.35-7.45)
[2017-02-28 20:21] LABS: COMMENTS - BLOOD GASES A+C+; PO2 76 mm Hg (80-100); SITE RR
[2017-02-28 20:22] LABS: DEVICE VENT; FI02 60 %; MODE NIV-MV; PEEP 8 CM/H20; PRES. SUPPORT 15 CM/H2O; TOTAL RESP RATE 24 resp/min
[2017-02-28 23:16] LABS: GLOBULINS 2.1 G/DL (2.3-3.5)
[2017-03-01] VITALS (17 sets, daily range): BP systolic 85–138; BP diastolic 53–75
[2017-03-01 01:51] LABS: POINT-OF-CARE METER ID UU13113748
[2017-03-01 05:39] LABS: HEMATOCRIT 31.3 % (38.0-50.0); MCHC 31.3 G/DL (30.0-36.0); MCV 92.6 FL (86-99); RBC DIS.WIDTH-CV 16.7 % (11.8-14.6); RBC DIS.WIDTH-SD 56.7 % (39-53); RED BLOOD COUNT 3.38 M/uL (4.00-5.50)
[2017-03-01 06:01] LABS: ANION GAP 9 MEQ/L (2-14); CHLORIDE 102 MEQ/L (99-109); GFR ESTIMATE (CALCULATED) > 59 mL/min/; GLUCOSE 166 mg/dL (70-99); MAGNESIUM 2.2 mg/dl (1.3-2.7); POTASSIUM 4.2 MEQ/L (3.7-5.4); SAMPLE HEMOLYSIS CHECK 0; SAMPLE ICTERIC CHECK 0; SAMPLE LIPEMIA CHECK 0; SODIUM 139 MEQ/L (136-147); UREA NITROGEN (BUN) 73 mg/dL (9-23)
[2017-03-01 06:29] LABS: POINT-OF-CARE METER ID UU13113803
[2017-03-01 07:53] LABS: MEAN PLAT.VOLUME 9.5 uM^3 (9.0-12.4); PLATELET COUNT 158 K/uL (156-360)
[2017-03-01 09:28] LABS: HBSG INDEX 0.23; HPCA INDEX 0.09
[2017-03-01] MEDS ORDERED: ELIQUIS5 MG PO (11:53)
[2017-03-01] MEDS ORDERED: TYLENOL EXTRA500 MG PO (11:55)
[2017-03-01] MEDS ORDERED: HUMULIN R100 UNITS/ SC (11:59)
[2017-03-01] MEDS ORDERED: NYSTATIN-TRIAMC15 GM TP (12:00)
[2017-03-01] MEDS ORDERED: MUCINEX1200 MG PO (12:02)
[2017-03-01 12:17] LABS: POINT-OF-CARE METER ID UU13113748
[2017-03-01 14:07] LABS: ALBUMIN 2.38 G/DL (3.6-4.9); ALBUMIN PERCENT 54.2 %; ALPHA-1 GLOBULIN 0.19 G/DL (0.15-0.40); ALPHA-1 PERCENT 4.3 %; ALPHA-2 GLOBULIN 0.95 G/DL (0.45-0.85); ALPHA-2 PERCENT 21.5 %; BETA PERCENT 12.2 %; GAMMA PERCENT 7.8 %
[2017-03-01 14:08] LABS: IFE GEL NO. 79-4
[2017-03-01 15:16] LABS: PROCALCITONIN+ 0.11 ng/mL (<0.10)
[2017-03-01 18:04] LABS: POINT-OF-CARE METER ID UU14174217
[2017-03-01 21:29] LABS: ABS NEUTROPHIL COUNT 6.8; ACANTHOCYTES 1+; ANISOCYTOSIS 1+; EOSINOPHIL ABS CT 0; HYPOCHROMASIA 2+; INSTRUMENT ABS NEUTROPHIL CT 7.2 K/uL; MACROCYTES 1+; PLAT.SUFFICIENCY ADEQUATE
[2017-03-02] VITALS (18 sets, daily range): BP systolic 92–130; BP diastolic 46–75
[2017-03-02 00:01] LABS: POINT-OF-CARE USER ID LABHNS84
[2017-03-02 05:52] LABS: HEMATOCRIT 30.2 % (38.0-50.0); MCHC 32.1 G/DL (30.0-36.0); MCV 93.5 FL (86-99); MEAN PLAT.VOLUME 9.7 uM^3 (9.0-12.4); PLATELET COUNT 120 K/uL (156-360); RBC DIS.WIDTH-CV 16.9 % (11.8-14.6); RBC DIS.WIDTH-SD 58.3 % (39-53); RED BLOOD COUNT 3.23 M/uL (4.00-5.50); WHITE BLOOD COUNT 6.6 K/uL (4.1-10.2)
[2017-03-02 06:40] LABS: ANION GAP 11 MEQ/L (2-14); CHLORIDE 104 MEQ/L (99-109); GFR ESTIMATE (CALCULATED) 58 mL/min/; MAGNESIUM 1.9 mg/dl (1.3-2.7); SAMPLE HEMOLYSIS CHECK 0; SAMPLE ICTERIC CHECK 0; SAMPLE LIPEMIA CHECK 0; SODIUM 140 MEQ/L (136-147); UREA NITROGEN (BUN) 70 mg/dL (9-23)
[2017-03-02 06:54] LABS: GLUCOSE 120 mg/dL (70-99)
[2017-03-02 07:02] LABS: EOSINOPHIL (%) 0.5 % (0-5); IMMATURE GRANULOCYTE (%) 0.5 % (0.0-0.7); INSTRUMENT ABS NEUTROPHIL CT 5.7 K/uL; LYMPHOCYTE COUNT 0.4 K/uL (1.0-2.8); MONOCYTE (%) 7.1 % (3-12); MONOCYTE COUNT 0.5 K/uL (0-0.8); NEUTROPHIL (%) 86.1 % (45-76); NEUTROPHIL COUNT 5.7 K/uL (1.8-6.4)
[2017-03-02 11:30] LABS: POINT-OF-CARE METER ID UU13113803
[2017-03-02 18:20] LABS: POINT-OF-CARE METER ID UU13113803
[2017-03-02 22:14] LABS: POINT-OF-CARE METER ID UU13113803
[2017-03-03] VITALS (22 sets, daily range): BP systolic 83–128; BP diastolic 46–77
[2017-03-03 05:46] LABS: ANION GAP 8 MEQ/L (2-14); CHLORIDE 102 MEQ/L (99-109); GFR ESTIMATE (CALCULATED) 58 mL/min/; POTASSIUM 3.3 MEQ/L (3.7-5.4); SAMPLE HEMOLYSIS CHECK 0; SAMPLE ICTERIC CHECK 0; SAMPLE LIPEMIA CHECK 0; SODIUM 139 MEQ/L (136-147); UREA NITROGEN (BUN) 66 mg/dL (9-23)
[2017-03-03 05:49] LABS: GLUCOSE 230 mg/dL (70-99); MAGNESIUM 1.6 mg/dl (1.3-2.7)
[2017-03-03 06:18] LABS: HEMATOCRIT 27.7 % (38.0-50.0); MCH 28.7 PG (29.0-34.0); MCV 92.3 FL (86-99); MEAN PLAT.VOLUME 9.8 uM^3 (9.0-12.4); PLATELET COUNT 106 K/uL (156-360); RBC DIS.WIDTH-CV 16.9 % (11.8-14.6); RBC DIS.WIDTH-SD 57.4 % (39-53); WHITE BLOOD COUNT 5.9 K/uL (4.1-10.2)
[2017-03-03 08:27] LABS: POINT-OF-CARE METER ID UU13113803; POINT-OF-CARE USER ID AGYTJR
[2017-03-03 09:37] LABS: ABS NEUTROPHIL COUNT 5.3; EOSINOPHIL ABS CT 0.1
[2017-03-03 13:13] LABS: POINT-OF-CARE METER ID UU13113803; POINT-OF-CARE USER ID AGYTJR
[2017-03-03 18:25] LABS: POINT-OF-CARE METER ID UU13113803; POINT-OF-CARE USER ID AGYTJR
[2017-03-03 21:56] LABS: UR CREATININE CONCENTRATION 30.1 MG/DL
[2017-03-04] VITALS (12 sets, daily range): BP systolic 83–126; BP diastolic 50–69
[2017-03-04 05:57] LABS: HEMATOCRIT 27.1 % (38.0-50.0); MCH 29.9 PG (29.0-34.0); MCHC 32.5 G/DL (30.0-36.0); MCV 92.2 FL (86-99); MEAN PLAT.VOLUME 10.2 uM^3 (9.0-12.4); PLATELET COUNT 106 K/uL (156-360); RBC DIS.WIDTH-CV 17.1 % (11.8-14.6); RBC DIS.WIDTH-SD 57.8 % (39-53); RED BLOOD COUNT 2.94 M/uL (4.00-5.50); WHITE BLOOD COUNT 6.2 K/uL (4.1-10.2)
[2017-03-04 06:22] LABS: ANION GAP 8 MEQ/L (2-14); CHLORIDE 102 MEQ/L (99-109); GFR ESTIMATE (CALCULATED) > 59 mL/min/; GLUCOSE 182 mg/dL (70-99); MAGNESIUM 2.1 mg/dl (1.3-2.7); POTASSIUM 3.5 MEQ/L (3.7-5.4); SAMPLE HEMOLYSIS CHECK 0; SAMPLE ICTERIC CHECK 0; SAMPLE LIPEMIA CHECK 0; SODIUM 139 MEQ/L (136-147); UREA NITROGEN (BUN) 62 mg/dL (9-23)
[2017-03-04 07:14] LABS: EOSINOPHIL (%) 1.1 % (0-5); EOSINOPHIL COUNT 0.1 K/uL (0-0.3); IMMATURE GRANULOCYTE (%) 1.1 % (0.0-0.7); IMMATURE GRANULOCYTE COUNT 0.1 K/uL; INSTRUMENT ABS NEUTROPHIL CT 5.1 K/uL; LYMPHOCYTE COUNT 0.6 K/uL (1.0-2.8); MONOCYTE (%) 6.9 % (3-12); MONOCYTE COUNT 0.4 K/uL (0-0.8); NEUTROPHIL COUNT 5.1 K/uL (1.8-6.4)
[2017-03-04 09:01] LABS: POINT-OF-CARE METER ID UU14174217; POINT-OF-CARE USER ID AGYTJR
[2017-03-04 11:57] LABS: URINE TOTAL PROTEIN 245 MG/DL (0-10)
[2017-03-04 12:41] LABS: POINT-OF-CARE METER ID UU13113803; POINT-OF-CARE USER ID AGYTJR
[2017-03-04 13:49] LABS: Neutrophil Cytoplasmic Aby Negative (Negative)
[2017-03-04 16:59] LABS: POINT-OF-CARE METER ID UU13113803; POINT-OF-CARE USER ID AGYTJR
[2017-03-04 22:17] LABS: POINT-OF-CARE METER ID UU14174217
[2017-03-05] VITALS (10 sets, daily range): BP systolic 91–133; BP diastolic 53–72
[2017-03-05 06:03] LABS: HEMATOCRIT 27.4 % (38.0-50.0); MCHC 32.1 G/DL (30.0-36.0); MCV 93.5 FL (86-99); PLATELET COUNT 103 K/uL (156-360); RBC DIS.WIDTH-CV 16.7 % (11.8-14.6); RBC DIS.WIDTH-SD 57.1 % (39-53); RED BLOOD COUNT 2.93 M/uL (4.00-5.50); WHITE BLOOD COUNT 6.1 K/uL (4.1-10.2)
[2017-03-05 06:30] LABS: ANION GAP 8 MEQ/L (2-14); CHLORIDE 101 MEQ/L (99-109); GFR ESTIMATE (CALCULATED) > 59 mL/min/; GLUCOSE 169 mg/dL (70-99); POTASSIUM 3.4 MEQ/L (3.7-5.4); SAMPLE HEMOLYSIS CHECK 0; SAMPLE ICTERIC CHECK 0; SAMPLE LIPEMIA CHECK 0; SODIUM 140 MEQ/L (136-147); UREA NITROGEN (BUN) 66 mg/dL (9-23)
[2017-03-05 07:33] LABS: EOSINOPHIL (%) 1.3 % (0-5); EOSINOPHIL COUNT 0.1 K/uL (0-0.3); IMMATURE GRANULOCYTE (%) 1.1 % (0.0-0.7); IMMATURE GRANULOCYTE COUNT 0.1 K/uL; INSTRUMENT ABS NEUTROPHIL CT 4.8 K/uL; LYMPHOCYTE COUNT 0.6 K/uL (1.0-2.8); MONOCYTE (%) 10.9 % (3-12); MONOCYTE COUNT 0.7 K/uL (0-0.8); NEUTROPHIL (%) 77.7 % (45-76); NEUTROPHIL COUNT 4.8 K/uL (1.8-6.4); PLAT.SUFFICIENCY DECREASED
[2017-03-05 12:29] LABS: POINT-OF-CARE METER ID UU14162636
[2017-03-05 22:31] LABS: POINT-OF-CARE METER ID UU14174217; POINT-OF-CARE USER ID PHATLC
[2017-03-06] VITALS (8 sets, daily range): BP systolic 90–129; BP diastolic 57–74
[2017-03-06 06:28] LABS: HEMATOCRIT 28.8 % (38.0-50.0); MCH 28.9 PG (29.0-34.0); MCHC 31.3 G/DL (30.0-36.0); MCV 92.6 FL (86-99); MEAN PLAT.VOLUME 9.9 uM^3 (9.0-12.4); PLATELET COUNT 106 K/uL (156-360); RBC DIS.WIDTH-CV 16.4 % (11.8-14.6); RBC DIS.WIDTH-SD 55.8 % (39-53); RED BLOOD COUNT 3.11 M/uL (4.00-5.50); WHITE BLOOD COUNT 6.2 K/uL (4.1-10.2)
[2017-03-06 06:53] LABS: ANION GAP 7 MEQ/L (2-14); CHLORIDE 101 MEQ/L (99-109); GFR ESTIMATE (CALCULATED) > 59 mL/min/; GLUCOSE 196 mg/dL (70-99); POTASSIUM 3.3 MEQ/L (3.7-5.4); SAMPLE HEMOLYSIS CHECK 0; SAMPLE ICTERIC CHECK 0; SAMPLE LIPEMIA CHECK 0; SODIUM 141 MEQ/L (136-147); UREA NITROGEN (BUN) 66 mg/dL (9-23)
[2017-03-06 06:55] LABS: ABS NEUTROPHIL COUNT 5.3; ANISOCYTOSIS 1+; EOSINOPHIL ABS CT 0.1; EOSINOPHILS 0.9 % (0-5.0); HYPOCHROMASIA 1+; LYMPHOCYTES 6.9 % (15.0-45.0); METAMYELOCYTES 0.9 %; PLAT.SUFFICIENCY DECREASED; POLYCHROMASIA 1+; SEG.NEUTROPHILS 86.1 % (46.0-76.0)
[2017-03-06 12:06] LABS: POINT-OF-CARE METER ID UU13113748
[2017-03-06 17:25] LABS: POINT-OF-CARE METER ID UU13113748
[2017-03-06 22:29] LABS: POINT-OF-CARE METER ID UU13113748
[2017-03-07] VITALS (7 sets, daily range): BP systolic 0–148; BP diastolic 0–75
[2017-03-07 05:55] LABS: ANION GAP 8 MEQ/L (2-14); CHLORIDE 102 MEQ/L (99-109); GFR ESTIMATE (CALCULATED) > 59 mL/min/; GLUCOSE 227 mg/dL (70-99); MAGNESIUM 1.9 mg/dl (1.3-2.7); SAMPLE HEMOLYSIS CHECK 0; SAMPLE ICTERIC CHECK 0; SAMPLE LIPEMIA CHECK 0; SODIUM 142 MEQ/L (136-147); UREA NITROGEN (BUN) 62 mg/dL (9-23)
[2017-03-07 06:01] LABS: POTASSIUM 4.3 MEQ/L (3.7-5.4)
[2017-03-07 10:17] LABS: POINT-OF-CARE METER ID UU14174217
[2017-03-07 12:24] LABS: POINT-OF-CARE METER ID UU13113731; POINT-OF-CARE USER ID 612031313
[2017-03-07 17:44] LABS: POINT-OF-CARE METER ID UU13113731; POINT-OF-CARE USER ID 612031313
[2017-03-07 19:46] LABS: POINT-OF-CARE METER ID UU13113731; POINT-OF-CARE USER ID 609231305
[2017-03-07 23:02] LABS: POINT-OF-CARE METER ID UU14162636
[2017-03-08] VITALS (12 sets, daily range): BP systolic 77–117; BP diastolic 44–75
[2017-03-08 05:10] LABS: CHLORIDE 104 mEq/L (99-109); POTASSIUM 4.2 mEq/L (3.7-5.4); SODIUM 141 mEq/L (136-147)
[2017-03-08 05:11] LABS: MAGNESIUM 1.6 mg/dL (1.3-2.7)
[2017-03-08 05:14] LABS: ANION GAP 7 MEQ/L (2-14)
[2017-03-08 05:16] LABS: GFR ESTIMATE (CALCULATED) > 59 mL/min/
[2017-03-08 05:26] LABS: GLUCOSE 115 mg/dL (70-99)
[2017-03-08 05:38] LABS: UREA NITROGEN (BUN) 64 mg/dL (9-23)
[2017-03-08 09:43] LABS: POINT-OF-CARE METER ID UU13113731
[2017-03-08 12:12] LABS: POINT-OF-CARE METER ID UU13113731
[2017-03-08 16:42] LABS: POINT-OF-CARE METER ID UU13113731
[2017-03-08 21:46] LABS: POINT-OF-CARE METER ID UU13113731
[2017-03-09] VITALS (8 sets, daily range): BP systolic 89–136; BP diastolic 44–68
[2017-03-09 08:35] LABS: MCH 29.3 PG (29.0-34.0); MCHC 30.8 G/DL (30.0-36.0); MCV 95.2 FL (86-99); MEAN PLAT.VOLUME 9.9 uM^3 (9.0-12.4); PLATELET COUNT 88 K/uL (156-360); RBC DIS.WIDTH-CV 16.4 % (11.8-14.6); RBC DIS.WIDTH-SD 58.1 % (39-53); RED BLOOD COUNT 2.73 M/uL (4.00-5.50); WHITE BLOOD COUNT 11.4 K/uL (4.1-10.2)
[2017-03-09 09:17] LABS: ANION GAP 9 MEQ/L (2-14); CHLORIDE 102 MEQ/L (99-109); GFR ESTIMATE (CALCULATED) > 59 mL/min/; GLUCOSE 112 mg/dL (70-99); MAGNESIUM 1.9 mg/dl (1.3-2.7); POTASSIUM 4.2 MEQ/L (3.7-5.4); SAMPLE HEMOLYSIS CHECK 0; SAMPLE ICTERIC CHECK 0; SAMPLE LIPEMIA CHECK 0; SODIUM 142 MEQ/L (136-147); UREA NITROGEN (BUN) 67 mg/dL (9-23)
[2017-03-09 12:11] LABS: POINT-OF-CARE METER ID UU13113803
[2017-03-09 13:48] LABS: URINE GEL NUMBER 81-3
[2017-03-09 13:49] LABS: IFE GEL NO. 82-2
[2017-03-09 17:49] LABS: POINT-OF-CARE METER ID UU13113748; POINT-OF-CARE USER ID 606021424
[2017-03-09 21:54] LABS: POINT-OF-CARE METER ID UU14174217
[2017-03-10] VITALS: BP 130/64
[2017-03-10 04:00] VITALS: BP 119/75
[2017-03-10 05:18] LABS: CHLORIDE 103 mEq/L (99-109); POTASSIUM 4.5 mEq/L (3.7-5.4); SODIUM 142 mEq/L (136-147)
[2017-03-10 05:19] LABS: MAGNESIUM 1.7 mg/dL (1.3-2.7)
[2017-03-10 05:20] LABS: GLUCOSE 146 mg/dL (70-99)
[2017-03-10 05:21] LABS: ANION GAP 7 MEQ/L (2-14)
[2017-03-10 05:24] LABS: GFR ESTIMATE (CALCULATED) > 59 mL/min/
[2017-03-10 05:25] LABS: UREA NITROGEN (BUN) 61 mg/dL (9-23)
[2017-03-10 08:00] VITALS: BP 132/52
[2017-03-10 11:00] VITALS: BP 130/50
[2017-03-10 12:00] VITALS: BP 133/57
[2017-03-10 12:29] LABS: POINT-OF-CARE METER ID UU14162636; POINT-OF-CARE USER ID 612031313
[2017-03-10 15:51] LABS: CARBOXY HGB 2.3 % (0-5); COMMENTS - BLOOD GASES A+C+; DEVICE NON REBREATHER; FI02 100 %; METHEMOGLOBIN 2.5 % (0-1.5); O2 FLOW 15 L/MIN; PCO2 > 132 mm Hg (35-45); PO2 47 mm Hg (80-100); SITE RR
[2017-03-10 15:52] LABS: pH 6.92 (7.35-7.45)
[2017-03-10 23:41] LABS: POINT-OF-CARE METER ID UU14174217; POINT-OF-CARE USER ID PHATLC
[2017-03-11] VITALS: BP 59/32
== END 2017-03-11 06:15 | DRG 186 ==
LOC: EME → EDBD 08:51 → EDOF 13:16 → 4WEST 13:16 → EDOF 13:26 → 4WEST 14:33
PROVIDERS: Emergency Medicine; Hospitalist; Internal Medicine; Internal Medicine Nephrology
PROC: 5A09357 Assistance with Respiratory Ventilation, Less than 24 Consecutive Hours, Continuous Positive Airway Pressure (ICD-10-PCS; principal; 2017-02-28)
DX: J90 Pleural effusion, not elsewhere classified (principal); J96.21 Acute and chronic respiratory failure with hypoxia; L89.93 Pressure ulcer of unspecified site, stage 3; I50.33 Acute on chronic diastolic (congestive) heart failure; I13.0 Hypertensive heart and chronic kidney disease with heart failure and stage 1 through stage 4 chronic kidney disease, or unspecified chronic kidney disease; N04.9 Nephrotic syndrome with unspecified morphologic changes; N17.9 Acute kidney failure, unspecified; J98.11 Atelectasis; G82.20 Paraplegia, unspecified; E11.22 Type 2 diabetes mellitus with diabetic chronic kidney disease; E11.21 Type 2 diabetes mellitus with diabetic nephropathy; E83.42 Hypomagnesemia; N28.1 Cyst of kidney, acquired; D69.6 Thrombocytopenia, unspecified; N31.9 Neuromuscular dysfunction of bladder, unspecified; E86.1 Hypovolemia; I27.2 Other secondary pulmonary hypertension; E66.9 Obesity, unspecified; D64.9 Anemia, unspecified; R31.0 Gross hematuria; T38.0X5A Adverse effect of glucocorticoids and synthetic analogues, initial encounter; I48.2 Chronic atrial fibrillation; T17.990A Other foreign object in respiratory tract, part unspecified in causing asphyxiation, initial encounter; M10.9 Gout, unspecified; F32.9 Major depressive disorder, single episode, unspecified; N18.3 Chronic kidney disease, stage 3 (moderate); E87.6 Hypokalemia; G47.33 Obstructive sleep apnea (adult) (pediatric); D72.829 Elevated white blood cell count, unspecified; Z96.0 Presence of urogenital implants; Z86.73 Personal history of transient ischemic attack (TIA), and cerebral infarction without residual deficits; Z87.442 Personal history of urinary calculi; Z87.440 Personal history of urinary (tract) infections; J44.9 Chronic obstructive pulmonary disease, unspecified; Z87.891 Personal history of nicotine dependence; Z79.4 Long term (current) use of insulin; Z79.01 Long term (current) use of anticoagulants; Z68.34 Body mass index [BMI] 34.0-34.9, adult; Z51.5 Encounter for palliative care; Z86.74 Personal history of sudden cardiac arrest; Z66 Do not resuscitate
CPT/HCPCS: 31720; 36600; 71010; 76770; 80048; 80053; 81003; 81050; 82570; 82803; 82948; 83036; 83605; 83735; 83880; 84100; 84145 90; 84156; 84165; 84166; 84484; 84550; 85025; 85027; 86021 90; 86038; 86140; 86160; 86334; 86335; 86430; 86803; 87040; 87070; 87086; 87106; 87205; 87340; 87641; 88108; 88305; 93005; 93971; 94002; 94003; 94640; 94640 76; 94667; 94668; 94760; 94799; 99202; 99281; 99284; J1815; J1940; J1956; J2270; J2310; J3475; J7050; J7512; J7644; P9045; P9047; S0028